=== PATIENT | female | born 1995 | race Caucasian/White ===

== ENCOUNTER 2018-07-29 16:58 | Emergency (ER) | payer OTHER ==
[~2018-07-29] VITALS: Ht 154.9 cm; Wt 103.2 kg
[~2018-07-29 16:58] MED LIST: ABILIFY 15MG TA15 MG PO; ATARAX50 MG PO; DEXILANT60 MG PO; LEXAPRO20 MG PO; LORTAB 7.5/5001 TAB; TENORMIN 2525 MG/TAB PO; ZOFRAN 4MG T4 MG/TAB PO; ZYPREXA 5MG5 MG PO; ZYRTEC 10MG10 MG PO
[2018-07-29 17:08] VITALS: TEMP 99.1
[2018-07-29] MEDS ORDERED: LOPRESSOR 550 MG/TAB PO (17:22)
[2018-07-29] MEDS ORDERED: DIAMOX 250MG250 MG PO (17:23)
[2018-07-29] MEDS ORDERED: LAMICTAL 100MG100 MG PO (17:23)
[2018-07-29] MEDS ORDERED: EFFEXOR-XR150 MG PO (17:23)
[2018-07-29] MEDS ORDERED: VITAMIN D31000 I1 PO (17:24)
[2018-07-29] MEDS ORDERED: DESYREL 100MG100 MG PO ×2 (17:24)
[2018-07-29] MEDS ORDERED: FOLIC ACID 11 MG/TA1 PO (17:24)
[2018-07-29] MEDS ORDERED: SEROQUEL300 MG PO (17:25)
[2018-07-29] MEDS ORDERED: KLONOPIN 1MG1 MG PO (17:25)
[2018-07-29 18:25] LABS: COLLECTION METHOD CLEAN CATCH
[2018-07-29 18:34] LABS: MUCOUS Present /lpf; PH 7 (5-8); URINE APPEARANCE Hazy; URINE BACTERIA Rare /hpf; URINE BILIRUBIN Negative (NEGATIVE); URINE BLOOD Negative (NEGATIVE); URINE COLOR Yellow; URINE GLUCOSE Negative (NEGATIVE); URINE KETONE Negative (NEGATIVE); URINE LEUKOCYTE ESTERASE 2+ (NEGATIVE); URINE NITRATE Negative (NEGATIVE); URINE PROTEIN(semi-quant) Negative (NEGATIVE); URINE RBC 0-2 /hpf
[2018-07-29 18:50] LABS: BASO % 0.2 % (0.0-2.0); EOS % 0.1 % (0-4.0); GRAN # 18.1 (1.4-6.5); MEAN CELL VOLUME 79 fl (80.0-100.0); MEAN CORPUSCULAR HEMOGLOBIN 24 pg (27.0-31.0); MEAN CORPUSCULAR HGB CONC 30 g/dl (33.0-37.0); MEAN PLATELET VOLUME 9.9 fl (7.4-10.4); MONO # 0.1 (0.1-0.6); MONO % 0.6 % (1.7-9.3); PLATELET COUNT 339 K/mm3 (130-400); RED BLOOD COUNT 5.07 M/mm3 (4.10-5.30); REDCELL DISTRIBUTION WIDTH-CV 18.1 % (11.5-14.5)
[2018-07-29 18:56] LABS: PROTHROMBIN TIME 11.3 SECONDS (9.7-12.8)
[2018-07-29 19:01] LABS: BILIRUBIN,TOTAL 0.2 mg/dL (0.0-1.0); C-REACTIVE PROTEIN 1.8 mg/dL (0.0-0.9); CALCIUM 9.3 mg/dL (8.4-10.2); CREATININE, serum 1.29 mg/dL (0.52-1.25); POTASSIUM 3.9 mmol/L (3.4-5.0); TOTAL PROTEIN 7.3 gm/dL (6.4-8.2)
[2018-07-29 21:09] VITALS: BP 127/88; PULSE 88
[2018-07-29] MEDS ORDERED: CIPRO 500MG TA500 MG PO (21:12)
[2018-07-29] MEDS ORDERED: PHENERGAN 25 TA25 MG PO (21:12)
[2018-07-29] MEDS ORDERED: NORCO 325 MG-51 TAB PO (21:12)
== END 2018-07-29 21:15 | disposition home or self-care (01) ==
LOC: COL.ER 16:58
PROVIDERS: Emergency Medicine
DX: K50.90 Crohn's disease, unspecified, without complications (principal); N39.0 Urinary tract infection, site not specified
CPT/HCPCS: J0780; J1170; J7030; Q9967

== ENCOUNTER 2018-09-13 20:15 | Emergency (ER) | payer OTHER ==
[~2018-09-13] VITALS: Ht 154.9 cm; Wt 105.0 kg
[~2018-09-13 20:15] MED LIST changes: +CIPRO 500MG TA500 MG PO; +DESYREL 100MG100 MG PO; +DIAMOX 250MG250 MG PO; +EFFEXOR-XR150 MG PO; +FOLIC ACID 11 MG/TA1 PO; +KLONOPIN 1MG1 MG PO; +LAMICTAL 100MG100 MG PO; +LOPRESSOR 550 MG/TAB PO; +NORCO 325 MG-51 TAB PO; +PHENERGAN 25 TA25 MG PO; +SEROQUEL300 MG PO; +VITAMIN D31000 I1 PO
[2018-09-13 21:31] LABS: BASO # 0.1 (0.0-0.2); BASO % 0.4 % (0.0-2.0); EOS # 0.1 (0.0-0.7); GRAN # 11.2 (1.4-6.5); GRAN % 76.5 % (42.2-75.2); HEMATOCRIT 41.2 % (37.0-47.0); HEMOGLOBIN 12.5 g/dl (12.5-16.0); LYMPH # 2.3 (1.2-3.4); LYMPH % 15.9 % (20.0-51.0); MEAN CELL VOLUME 78 fl (80.0-100.0); MEAN CORPUSCULAR HEMOGLOBIN 24 pg (27.0-31.0); MEAN CORPUSCULAR HGB CONC 30 g/dl (33.0-37.0); MEAN PLATELET VOLUME 9.8 fl (7.4-10.4); MONO # 0.8 (0.1-0.6); MONO % 5.7 % (1.7-9.3); PLATELET COUNT 378 K/mm3 (130-400); REDCELL DISTRIBUTION WIDTH-CV 16.2 % (11.5-14.5)
[2018-09-13 21:42] LABS: ALBUMIN 3.8 gm/dL (3.5-5.0); BILIRUBIN,TOTAL 0.3 mg/dL (0.0-1.0); C-REACTIVE PROTEIN 0.6 mg/dL (0.0-0.9); CALCIUM 9.1 mg/dL (8.4-10.2); CREATININE, serum 1.1 mg/dL (0.52-1.25); TOTAL PROTEIN 6.9 gm/dL (6.4-8.2)
[2018-09-13 22:03] LABS: ERYTHROCYTE SEDIMENTATION RATE 9 mm/hr (0-20)
[2018-09-13 22:47] LABS: COLLECTION METHOD CLEAN CATCH
[2018-09-13 22:56] LABS: PH 6 (5-8); URINE APPEARANCE Hazy; URINE BACTERIA None Seen /hpf; URINE BILIRUBIN Negative (NEGATIVE); URINE BLOOD Negative (NEGATIVE); URINE COLOR Yellow; URINE GLUCOSE Negative (NEGATIVE); URINE KETONE Negative (NEGATIVE); URINE LEUKOCYTE ESTERASE Trace (NEGATIVE); URINE NITRATE Negative (NEGATIVE); URINE PROTEIN(semi-quant) 1+ (NEGATIVE); URINE RBC 0-2 /hpf; URINE UROBILINOGEN Negative (NEGATIVE)
[2018-09-14] MEDS ORDERED: LIORESAL20 MG PO (00:07)
[2018-09-14] MEDS ORDERED: ULTRAM 50MG TAB50 MG PO (00:07)
[2018-09-14] MEDS ORDERED: CELEBREX 200MG200 MG PO (00:08)
[2018-09-14] MEDS ORDERED: EFFEXOR XR75 MG/CAP PO (00:08)
[2018-09-14 04:35] VITALS: TEMP 98.1
[2018-09-14 07:20] VITALS: BP 115/60; PULSE 70
== END 2018-09-14 07:31 | disposition short-term general hospital (02) ==
LOC: COL.ER 20:15
PROVIDERS: Emergency Medicine
DX: H53.132 Sudden visual loss, left eye (principal); K50.90 Crohn's disease, unspecified, without complications; Q14.1 Congenital malformation of retina
CPT/HCPCS: J1100; J2405; J3010; J7030

== ENCOUNTER 2018-09-28 15:51 | Emergency (ER) | payer MEDICAID ==
[~2018-09-28] VITALS: Ht 154.9 cm; Wt 108.6 kg
[~2018-09-28 15:51] MED LIST changes: +CELEBREX 200MG200 MG PO; +EFFEXOR XR75 MG/CAP PO; +LIORESAL20 MG PO; +ULTRAM 50MG TAB50 MG PO
[2018-09-28 16:03] VITALS: BP 138/94; TEMP 98.7
[2018-09-28] MEDS ORDERED: AMOXICILLIN 50500 MG PO (16:20)
[2018-09-28] MEDS ORDERED: NORCO 325 MG-51 TAB PO (16:20)
[2018-09-28] MEDS ORDERED: FLEXERIL5 MG PO (16:20)
[2018-09-28 16:33] VITALS: PULSE 111
== END 2018-09-28 16:34 | disposition home or self-care (01) ==
LOC: COL.ER 15:51
DX: M26.601 Right temporomandibular joint disorder, unspecified (principal); K50.90 Crohn's disease, unspecified, without complications

== ENCOUNTER 2018-10-09 16:31 | Emergency (ER) | payer MEDICAID ==
[~2018-10-09] VITALS: Ht 152.4 cm; Wt 103.6 kg
[~2018-10-09 16:31] MED LIST changes: +AMOXICILLIN 50500 MG PO; +FLEXERIL5 MG PO
[2018-10-09 16:35] VITALS: TEMP 99.5
[2018-10-09 20:13] LABS: COLLECTION METHOD CLEAN CATCH
[2018-10-09 20:26] LABS: MUCOUS Present /lpf; PH 5 (5-8); URINE APPEARANCE Clear; URINE BACTERIA None Seen /hpf; URINE BILIRUBIN Negative (NEGATIVE); URINE BLOOD Negative (NEGATIVE); URINE COLOR Yellow; URINE GLUCOSE Negative (NEGATIVE); URINE KETONE Negative (NEGATIVE); URINE LEUKOCYTE ESTERASE 1+ (NEGATIVE); URINE NITRATE Negative (NEGATIVE); URINE PROTEIN(semi-quant) 1+ (NEGATIVE); URINE RBC 0-2 /hpf; URINE UROBILINOGEN Negative (NEGATIVE)
[2018-10-09 21:04] LABS: BASO # 0.1 (0.0-0.2); BASO % 0.5 % (0.0-2.0); EOS # 0.3 (0.0-0.7); EOS % 2.5 % (0-4.0); GRAN # 6.9 (1.4-6.5); GRAN % 66.9 % (42.2-75.2); HEMATOCRIT 40.1 % (37.0-47.0); HEMOGLOBIN 12.1 g/dl (12.5-16.0); LYMPH # 2.5 (1.2-3.4); LYMPH % 24.2 % (20.0-51.0); MEAN CELL VOLUME 78 fl (80.0-100.0); MEAN CORPUSCULAR HEMOGLOBIN 23 pg (27.0-31.0); MEAN CORPUSCULAR HGB CONC 30 g/dl (33.0-37.0); MONO # 0.6 (0.1-0.6); MONO % 5.7 % (1.7-9.3); PLATELET COUNT 408 K/mm3 (130-400); RED BLOOD COUNT 5.17 M/mm3 (4.10-5.30); REDCELL DISTRIBUTION WIDTH-CV 15.6 % (11.5-14.5)
[2018-10-09 21:42] LABS: ALBUMIN 3.9 gm/dL (3.5-5.0); BILIRUBIN,TOTAL 0.3 mg/dL (0.0-1.0); C-REACTIVE PROTEIN 1.1 mg/dL (0.0-0.9); CALCIUM 9.8 mg/dL (8.4-10.2); CREATININE, serum 1.26 (0.52-1.25); POTASSIUM 3.8 mmol/L (3.4-5.0); TOTAL PROTEIN 7.3 gm/dL (6.4-8.2)
[2018-10-09 23:10] VITALS: BP 129/81; PULSE 96
== END 2018-10-09 23:10 | disposition home or self-care (01) ==
LOC: COL.ER 16:31
PROVIDERS: Emergency Medicine
DX: R19.7 Diarrhea, unspecified (principal); R11.10 Vomiting, unspecified; R10.11 Right upper quadrant pain; K21.9 Gastro-esophageal reflux disease without esophagitis; G40.909 Epilepsy, unspecified, not intractable, without status epilepticus; E27.40 Unspecified adrenocortical insufficiency; Z88.2 Allergy status to sulfonamides; Z88.1 Allergy status to other antibiotic agents; Z90.49 Acquired absence of other specified parts of digestive tract; Z98.84 Bariatric surgery status
CPT/HCPCS: J2270; J7030; Q9967

== ENCOUNTER → 2018-11-09 | Outpatient (CLI) | payer MEDICAID | LOC: COL.RAD 15:29 | PROVIDERS: Family Medicine | DX: R00.0 Tachycardia, unspecified (principal); R05 Cough ==

== ENCOUNTER 2018-11-20 11:01 | Emergency (ER) | payer MEDICAID ==
[~2018-11-20] VITALS: Ht 152.4 cm; Wt 105.0 kg
[2018-11-20 11:07] VITALS: TEMP 96.5
[2018-11-20] MEDS ORDERED: CORTEF5 MG PO (11:39)
[2018-11-20] MEDS ORDERED: PROTONIX 40MG T40 MG PO (11:41)
[2018-11-20] MEDS ORDERED: PROAIR HFA0.09 MG/AC IH (11:43)
[2018-11-20] MEDS ORDERED: SEROQUEL 1100 MG/TAB PO (11:44)
[2018-11-20 12:23] LABS: COLLECTION METHOD CLEAN CATCH
[2018-11-20 12:49] LABS: MUCOUS Present /lpf; PH 5 (5-8); URINE APPEARANCE Clear; URINE BACTERIA None Seen /hpf; URINE BILIRUBIN Negative (NEGATIVE); URINE BLOOD Negative (NEGATIVE); URINE COLOR Yellow; URINE GLUCOSE Negative (NEGATIVE); URINE KETONE Trace (NEGATIVE); URINE LEUKOCYTE ESTERASE 2+ (NEGATIVE); URINE NITRATE Negative (NEGATIVE); URINE PROTEIN(semi-quant) 1+ (NEGATIVE); URINE UROBILINOGEN Negative (NEGATIVE)
[2018-11-20 13:35] LABS: BASO % 0.4 % (0.0-2.0); EOS # 0.1 (0.0-0.7); EOS % 0.7 % (0-4.0); GRAN # 7.2 (1.4-6.5); HEMATOCRIT 43.2 % (37.0-47.0); HEMOGLOBIN 13.5 g/dl (12.5-16.0); LYMPH # 1.7 (1.2-3.4); LYMPH % 18.1 % (20.0-51.0); MEAN CELL VOLUME 76 fl (80.0-100.0); MEAN CORPUSCULAR HEMOGLOBIN 24 pg (27.0-31.0); MEAN CORPUSCULAR HGB CONC 31 g/dl (33.0-37.0); MEAN PLATELET VOLUME 11.1 fl (7.4-10.4); MONO # 0.4 (0.1-0.6); MONO % 4.5 % (1.7-9.3); PLATELET COUNT 313 K/mm3 (130-400); RED BLOOD COUNT 5.69 M/mm3 (4.10-5.30); REDCELL DISTRIBUTION WIDTH-CV 15.1 % (11.5-14.5)
[2018-11-20 13:52] LABS: ALBUMIN 4.2 gm/dL (3.5-5.0); BILIRUBIN,TOTAL 0.5 mg/dL (0.0-1.0); C-REACTIVE PROTEIN 0.8 mg/dL (0.0-0.9); CALCIUM 10.1 mg/dL (8.4-10.2); CREATININE, serum 1.07 (0.52-1.25); POTASSIUM 4.4 mmol/L (3.4-5.0); TOTAL PROTEIN 7.6 gm/dL (6.4-8.2)
[2018-11-20 13:57] VITALS: BP 180/92; PULSE 65
== END 2018-11-20 13:59 | disposition home or self-care (01) ==
LOC: COL.ER 11:01
PROVIDERS: Family Medicine
DX: G43.909 Migraine, unspecified, not intractable, without status migrainosus (principal); G93.2 Benign intracranial hypertension; K50.90 Crohn's disease, unspecified, without complications; G40.909 Epilepsy, unspecified, not intractable, without status epilepticus; E27.40 Unspecified adrenocortical insufficiency; Z90.49 Acquired absence of other specified parts of digestive tract; Z79.52 Long term (current) use of systemic steroids
CPT/HCPCS: J1170; J2550

== ENCOUNTER 2018-11-23 15:00 | Emergency (ER) | payer MEDICAID ==
[~2018-11-23] VITALS: Ht 154.9 cm; Wt 105.0 kg
[~2018-11-23 15:00] MED LIST changes: +CORTEF5 MG PO; +PROAIR HFA0.09 MG/AC IH; +PROTONIX 40MG T40 MG PO; +SEROQUEL 1100 MG/TAB PO
[2018-11-23 15:17] VITALS: BP 164/86; TEMP 98.6
[2018-11-23 18:13] VITALS: PULSE 101
== END 2018-11-23 18:13 | disposition home or self-care (01) ==
LOC: COL.ER 15:00
DX: S40.011A Contusion of right shoulder, initial encounter (principal); S70.01XA Contusion of right hip, initial encounter; S16.1XXA Strain of muscle, fascia and tendon at neck level, initial encounter; I10 Essential (primary) hypertension; J45.909 Unspecified asthma, uncomplicated; K21.9 Gastro-esophageal reflux disease without esophagitis; W18.2XXA Fall in (into) shower or empty bathtub, initial encounter; Y93.F1 Activity, caregiving, bathing; Y92.009 Unspecified place in unspecified non-institutional (private) residence as the place of occurrence of the external cause

== ENCOUNTER 2018-11-26 15:13 | Emergency (ER) | payer MEDICAID ==
[~2018-11-26] VITALS: Ht 152.4 cm; Wt 105.0 kg
[2018-11-26] MEDS ORDERED: TESSALON PERLE200 MG PO (17:20)
[2018-11-26] MEDS ORDERED: ZITHROMAX500 M2 PO (17:20)
[2018-11-26 18:11] VITALS: BP 115/75; PULSE 92; TEMP 98.9
== END 2018-11-26 18:12 | disposition home or self-care (01) ==
LOC: COL.ER 15:13
DX: J40 Bronchitis, not specified as acute or chronic (principal); I10 Essential (primary) hypertension; K50.90 Crohn's disease, unspecified, without complications; F17.210 Nicotine dependence, cigarettes, uncomplicated; Z90.49 Acquired absence of other specified parts of digestive tract
CPT/HCPCS: J7512

== ENCOUNTER → 2018-11-27 | Outpatient (CLI) | payer MEDICAID ==
[~2018-11-27] MED LIST changes: +TESSALON PERLE200 MG PO; +ZITHROMAX500 M2 PO
[2018-11-27 14:33] LABS: BASO # 0.1 (0.0-0.2); BASO % 0.4 % (0.0-2.0); EOS # 0.5 (0.0-0.7); EOS % 2.8 % (0-4.0); GRAN % 74.2 % (42.2-75.2); HEMOGLOBIN 12.4 g/dl (12.5-16.0); LYMPH # 2.6 (1.2-3.4); LYMPH % 15.8 % (20.0-51.0); MEAN CELL VOLUME 75 fl (80.0-100.0); MEAN CORPUSCULAR HEMOGLOBIN 23 pg (27.0-31.0); MEAN CORPUSCULAR HGB CONC 31 g/dl (33.0-37.0); MEAN PLATELET VOLUME 10.1 fl (7.4-10.4); MONO % 6.4 % (1.7-9.3); PLATELET COUNT 325 K/mm3 (130-400); RED BLOOD COUNT 5.34 M/mm3 (4.10-5.30); REDCELL DISTRIBUTION WIDTH-CV 15.1 % (11.5-14.5)
== END ==
LOC: COL.LAB 14:01
PROVIDERS: Psychiatry & Neurology Neurology
DX: Z01.812 Encounter for preprocedural laboratory examination (principal); H46.9 Unspecified optic neuritis

== ENCOUNTER → 2018-11-27 | Outpatient (CLI) | payer MEDICAID | LOC: COL.RAD 13:54 | DX: M43.8X6 Other specified deforming dorsopathies, lumbar region (principal); M43.16 Spondylolisthesis, lumbar region; H46.9 Unspecified optic neuritis ==

== ENCOUNTER 2018-12-03 13:39 | Emergency (ER) | payer MEDICAID ==
[~2018-12-03] VITALS: Ht 152.4 cm; Wt 102.7 kg
[2018-12-03 13:42] VITALS: TEMP 97.8
[2018-12-03 18:30] VITALS: BP 133/75; PULSE 73
== END 2018-12-03 18:31 | disposition home or self-care (01) ==
LOC: COL.ER 13:39
DX: R51 Headache (principal)
CPT/HCPCS: J1630; J2550; J3010

== ENCOUNTER 2018-12-04 15:18 | Emergency (ER) | payer MEDICAID ==
[~2018-12-04] VITALS: Ht 152.4 cm; Wt 104.1 kg
[2018-12-04 15:26] VITALS: TEMP 99.2
[2018-12-04 17:37] LABS: ALANINE AMINOTRANSFERASE < 6 U/L (9-52); ALBUMIN 4.1 gm/dL (3.5-5.0); ALKALINE PHOSPHATASE 94 U/L (50-136); ANION GAP 9 mmol/L (7-16); AST,SGOT 20 U/L (15-37); BILIRUBIN,TOTAL 0.3 mg/dL (0.0-1.0); BLOOD UREA NITROGEN 11 mg/dL (7-17); C-REACTIVE PROTEIN 1.4 mg/dL (0.0-0.9); CALCIUM 9.3 mg/dL (8.4-10.2); CARBON DIOXIDE 24 mmol/L (22-30); CHLORIDE 108 mmol/L (98-107); CREATININE, serum 1.21 (0.52-1.25); GLUCOSE 89 mg/dL (74-106); POTASSIUM 3.9 mmol/L (3.4-5.0); SODIUM 141 mmol/L (137-145); TOTAL PROTEIN 7.5 gm/dL (6.4-8.2)
[2018-12-04 17:44] LABS: BASO % 0.3 % (0.0-2.0); EOS # 0.3 (0.0-0.7); EOS % 2.4 % (0-4.0); GRAN # 8.9 (1.4-6.5); GRAN % 72.9 % (42.2-75.2); HEMATOCRIT 42.6 % (37.0-47.0); HEMOGLOBIN 13.2 g/dl (12.5-16.0); LYMPH # 2.3 (1.2-3.4); LYMPH % 18.4 % (20.0-51.0); MEAN CELL VOLUME 76 fl (80.0-100.0); MEAN CORPUSCULAR HEMOGLOBIN 23 pg (27.0-31.0); MEAN CORPUSCULAR HGB CONC 31 g/dl (33.0-37.0); MEAN PLATELET VOLUME 10.2 fl (7.4-10.4); MONO # 0.7 (0.1-0.6); MONO % 5.6 % (1.7-9.3); PLATELET COUNT 366 K/mm3 (130-400); RED BLOOD COUNT 5.63 M/mm3 (4.10-5.30); REDCELL DISTRIBUTION WIDTH-CV 15.3 % (11.5-14.5)
[2018-12-04 22:51] VITALS: BP 132/92; PULSE 98
== END 2018-12-04 19:15 | disposition short-term general hospital (02) ==
LOC: COL.ER
PROVIDERS: Emergency Medicine
DX: R51 Headache (principal); F17.210 Nicotine dependence, cigarettes, uncomplicated
CPT/HCPCS: J2405; J3010; J7030

== ENCOUNTER 2018-12-11 19:39 | Emergency (ER) | payer MEDICAID ==
[~2018-12-11] VITALS: Ht 152.4 cm; Wt 105.0 kg
[2018-12-11 19:41] VITALS: TEMP 97.9
[2018-12-11] MEDS ORDERED: NORVASC2.5 MG PO (20:23)
[2018-12-11] MEDS ORDERED: MAGNESIUM OXID500 MG PO (20:23)
[2018-12-12 06:30] VITALS: BP 144/85
[2018-12-12 08:00] VITALS: PULSE 98
== END 2018-12-12 08:00 | disposition short-term general hospital (02) ==
LOC: COL.ER 19:39
DX: G93.2 Benign intracranial hypertension (principal)
CPT/HCPCS: J1170; J1200; J1630; J2550; J2930; J7030

== ENCOUNTER 2019-01-02 17:13 | Emergency (ER) | payer MEDICAID ==
[~2019-01-02 17:13] MED LIST changes: +MAGNESIUM OXID500 MG PO; +NORVASC2.5 MG PO
[2019-01-02 17:16] VITALS: TEMP 98.7
[2019-01-02 18:32] LABS: BASO # 0.1 (0.0-0.2); BASO % 0.5 % (0.0-2.0); EOS # 0.3 (0.0-0.7); GRAN # 6.9 (1.4-6.5); GRAN % 62.9 % (42.2-75.2); HEMATOCRIT 41.7 % (37.0-47.0); HEMOGLOBIN 12.8 g/dl (12.5-16.0); LYMPH # 2.8 (1.2-3.4); LYMPH % 25.8 % (20.0-51.0); MEAN CELL VOLUME 75 fl (80.0-100.0); MEAN CORPUSCULAR HEMOGLOBIN 23 pg (27.0-31.0); MEAN CORPUSCULAR HGB CONC 31 g/dl (33.0-37.0); MEAN PLATELET VOLUME 10.2 fl (7.4-10.4); MONO # 0.8 (0.1-0.6); MONO % 7.6 % (1.7-9.3); PLATELET COUNT 387 K/mm3 (130-400); RED BLOOD COUNT 5.55 M/mm3 (4.10-5.30); REDCELL DISTRIBUTION WIDTH-CV 15.3 % (11.5-14.5)
[2019-01-02 18:39] LABS: ACETAMINOPHEN < 10 ug/mL (10-30); ALANINE AMINOTRANSFERASE 23 U/L (9-52); ALBUMIN 4.2 gm/dL (3.5-5.0); ALCOHOL(ethanol),MEDICAL < 10 mg/dL; ALKALINE PHOSPHATASE 108 U/L (50-136); ANION GAP 11 mmol/L (7-16); AST,SGOT 23 U/L (15-37); BILIRUBIN,TOTAL 0.3 mg/dL (0.0-1.0); BLOOD UREA NITROGEN 11 mg/dL (7-17); CALCIUM 10.1 mg/dL (8.4-10.2); CARBON DIOXIDE 24 mmol/L (22-30); CHLORIDE 109 mmol/L (98-107); CREATININE, serum 1.08 (0.52-1.25); GLUCOSE 106 mg/dL (74-106); POTASSIUM 3.9 mmol/L (3.4-5.0); SALICYLATE < 1.0 mg/dL; SODIUM 144 mmol/L (137-145); TOTAL PROTEIN 7.6 gm/dL (6.4-8.2)
[2019-01-02 19:05] LABS: TRICYCLIC ANTIDEPRESS URINE POSITIVE
[2019-01-02 20:37] LABS: ARTERIAL BLD GAS O2 SATURATION 99.1 % (92-100); ARTERIAL BLD GAS TCO2 CT 21.8; ARTERIAL BLOOD GAS BASE EXCESS -2.9 (-2-2); ARTERIAL BLOOD GAS HCO3 20.8 meq/L (22-26); ARTERIAL BLOOD GAS PCO2 32.9 mmHg (35-45); ARTERIAL BLOOD GAS pH 7.42 (7.35-7.45)
[2019-01-02 20:38] LABS: ARTERIAL BLOOD GAS PO2 387.1 mmHg (80-100)
[2019-01-02 21:30] VITALS: BP 126/59; PULSE 49
== END 2019-01-02 21:30 | disposition short-term general hospital (02) ==
LOC: COL.ER 17:13
PROVIDERS: Emergency Medicine
DX: T42.8X2A Poisoning by antiparkinsonism drugs and other central muscle-tone depressants, intentional self-harm, initial encounter (principal); R41.82 Altered mental status, unspecified; F31.9 Bipolar disorder, unspecified; K50.90 Crohn's disease, unspecified, without complications; Z98.890 Other specified postprocedural states; Z90.49 Acquired absence of other specified parts of digestive tract
CPT/HCPCS: J0330; J2250; J2405; J2543; J2704; J2765; J3010; J7030

== ENCOUNTER 2019-01-28 15:46 | Emergency (ER) | payer MEDICAID ==
[~2019-01-28] VITALS: Ht 152.4 cm; Wt 100.0 kg
[2019-01-28 15:53] VITALS: TEMP 97.4
[2019-01-28] MEDS ORDERED: SEROQUEL XR400 M1 PO (17:30)
[2019-01-28] MEDS ORDERED: KEPPRA1000 MG PO (17:30)
[2019-01-28] MEDS ORDERED: AMITRIPTYLINE H25 M1 PO (17:31)
[2019-01-28] MEDS ORDERED: DILANTIN 100MG100 MG PO (17:31)
[2019-01-28] MEDS ORDERED: KLONOPIN 0.5MG0.5 MG PO (17:32)
[2019-01-28 18:39] LABS: BASO % 0.3 % (0.0-2.0); EOS # 0.5 (0.0-0.7); EOS % 4.9 % (0-4.0); GRAN # 6.8 (1.4-6.5); GRAN % 69.7 % (42.2-75.2); HEMATOCRIT 38.9 % (37.0-47.0); HEMOGLOBIN 11.6 g/dl (12.5-16.0); LYMPH # 1.7 (1.2-3.4); LYMPH % 17.6 % (20.0-51.0); MEAN CELL VOLUME 78 fl (80.0-100.0); MEAN CORPUSCULAR HEMOGLOBIN 23 pg (27.0-31.0); MEAN CORPUSCULAR HGB CONC 30 g/dl (33.0-37.0); MEAN PLATELET VOLUME 9.9 fl (7.4-10.4); MONO # 0.7 (0.1-0.6); MONO % 7.2 % (1.7-9.3); PLATELET COUNT 305 K/mm3 (130-400); RED BLOOD COUNT 4.98 M/mm3 (4.10-5.30); REDCELL DISTRIBUTION WIDTH-CV 17.7 % (11.5-14.5)
[2019-01-28 18:44] LABS: COLLECTION METHOD CLEAN CATCH
[2019-01-28 18:50] LABS: ALANINE AMINOTRANSFERASE 30 U/L (9-52); ALBUMIN 3.8 gm/dL (3.5-5.0); ALKALINE PHOSPHATASE 114 U/L (50-136); ANION GAP 9 mmol/L (7-16); AST,SGOT 25 U/L (15-37); BILIRUBIN,TOTAL 0.2 mg/dL (0.0-1.0); BLOOD UREA NITROGEN 10 mg/dL (7-17); CALCIUM 9.3 mg/dL (8.4-10.2); CARBON DIOXIDE 26 mmol/L (22-30); CHLORIDE 108 mmol/L (98-107); GLUCOSE 87 mg/dL (74-106); MAGNESIUM 2.1 mg/dL (1.6-2.3); PHOSPHOROUS 3.9 mg/dL (2.5-4.5); POTASSIUM 4.1 mmol/L (3.4-5.0); SODIUM 143 mmol/L (137-145); TOTAL PROTEIN 6.9 gm/dL (6.4-8.2)
[2019-01-28 18:50] LABS: MUCOUS Present /lpf; PH 7 (5-8); URINE APPEARANCE Cloudy; URINE BACTERIA Rare /hpf; URINE BILIRUBIN Negative (NEGATIVE); URINE BLOOD 3+ (NEGATIVE); URINE COLOR Yellow; URINE GLUCOSE Negative (NEGATIVE); URINE KETONE Negative (NEGATIVE); URINE LEUKOCYTE ESTERASE 2+ (NEGATIVE); URINE NITRATE Positive (NEGATIVE); URINE PROTEIN(semi-quant) 2+ (NEGATIVE); URINE RBC >50 /hpf; URINE UROBILINOGEN Negative (NEGATIVE)
[2019-01-28 19:12] LABS: PHENYTOIN (DILANTIN) < 3.0 ug/mL (10.0-20.0)
[2019-01-28] MEDS ORDERED: CEFTIN500 MG PO (21:21)
[2019-01-28 21:31] VITALS: BP 132/95; PULSE 77
== END 2019-01-28 21:30 | disposition home or self-care (01) ==
LOC: COL.ER 15:46
PROVIDERS: Emergency Medicine
DX: N39.0 Urinary tract infection, site not specified (principal); F31.9 Bipolar disorder, unspecified; I10 Essential (primary) hypertension; F17.210 Nicotine dependence, cigarettes, uncomplicated; Z90.49 Acquired absence of other specified parts of digestive tract; Z98.890 Other specified postprocedural states
CPT/HCPCS: J0696; J1200; J1885; J2550; J7030

== ENCOUNTER 2019-02-23 12:36 | Emergency (ER) | payer MEDICAID ==
[~2019-02-23] VITALS: Ht 152.4 cm; Wt 100.5 kg
[~2019-02-23 12:36] MED LIST changes: +AMITRIPTYLINE H25 M1 PO; +CEFTIN500 MG PO; +DILANTIN 100MG100 MG PO; +KEPPRA1000 MG PO; +KLONOPIN 0.5MG0.5 MG PO; +SEROQUEL XR400 M1 PO
[2019-02-23 12:45] VITALS: TEMP 98.7
[2019-02-23 14:10] LABS: COLLECTION METHOD CLEAN CATCH
[2019-02-23 14:17] LABS: MUCOUS Present /lpf; PH 5 (5-8); URINE APPEARANCE Hazy; URINE BACTERIA Rare /hpf; URINE BILIRUBIN Negative (NEGATIVE); URINE BLOOD Negative (NEGATIVE); URINE COLOR Yellow; URINE GLUCOSE Negative (NEGATIVE); URINE KETONE Negative (NEGATIVE); URINE LEUKOCYTE ESTERASE 2+ (NEGATIVE); URINE NITRATE Positive (NEGATIVE); URINE PROTEIN(semi-quant) 2+ (NEGATIVE); URINE UROBILINOGEN Negative (NEGATIVE)
[2019-02-23 14:53] LABS: BASO # 0.1 (0.0-0.2); BASO % 0.7 % (0.0-2.0); EOS # 0.7 (0.0-0.7); EOS % 7.2 % (0-4.0); GRAN # 5.8 (1.4-6.5); GRAN % 64.3 % (42.2-75.2); HEMATOCRIT 42.1 % (37.0-47.0); HEMOGLOBIN 12.9 g/dl (12.5-16.0); LYMPH % 22.3 % (20.0-51.0); MEAN CELL VOLUME 75 fl (80.0-100.0); MEAN CORPUSCULAR HEMOGLOBIN 23 pg (27.0-31.0); MEAN CORPUSCULAR HGB CONC 31 g/dl (33.0-37.0); MEAN PLATELET VOLUME 10.3 fl (7.4-10.4); MONO # 0.5 (0.1-0.6); MONO % 5.3 % (1.7-9.3); PLATELET COUNT 304 K/mm3 (130-400); RED BLOOD COUNT 5.61 M/mm3 (4.10-5.30)
[2019-02-23 15:05] LABS: ALBUMIN 4.5 gm/dL (3.5-5.0); BILIRUBIN,TOTAL 0.3 mg/dL (0.0-1.0); C-REACTIVE PROTEIN 1.4 mg/dL (0.0-0.9); CALCIUM 9.6 mg/dL (8.4-10.2); CREATININE, serum 0.86 (0.52-1.25); POTASSIUM 4.2 mmol/L (3.4-5.0); TOTAL PROTEIN 7.9 gm/dL (6.4-8.2)
[2019-02-23 15:19] LABS: PROLACTIN 16.5 ng/mL (3.0-18.6)
[2019-02-23 15:22] VITALS: BP 127/89
[2019-02-23] MEDS ORDERED: LOPRESSOR 225 MG/TAB PO (15:28)
[2019-02-23] MEDS ORDERED: SEROQUEL XR300 MG PO (15:28)
[2019-02-23] MEDS ORDERED: CEPHALEXIN500 M1 PO (15:37)
[2019-02-23 15:45] VITALS: PULSE 90
== END 2019-02-23 15:48 | disposition home or self-care (01) ==
LOC: COL.ER 12:36
PROVIDERS: Physician Assistant
DX: N39.0 Urinary tract infection, site not specified (principal); R51 Headache; Z88.2 Allergy status to sulfonamides

== ENCOUNTER 2019-02-27 13:40 | Emergency (ER) | payer MEDICAID ==
[~2019-02-27] VITALS: Ht 152.4 cm; Wt 100.0 kg
[~2019-02-27 13:40] MED LIST changes: +CEPHALEXIN500 M1 PO; +LOPRESSOR 225 MG/TAB PO; +SEROQUEL XR300 MG PO
[2019-02-27 14:01] VITALS: BP 134/78; PULSE 112; TEMP 98.3
== END 2019-02-27 16:50 | disposition left against medical advice (07) ==
LOC: COL.ER 13:40
DX: N93.9 Abnormal uterine and vaginal bleeding, unspecified (principal)

== ENCOUNTER 2019-02-27 22:26 | Emergency (ER) | payer MEDICAID | END 2019-02-27 22:46 | disposition left against medical advice (07) | LOC: COL.ER 22:26 | DX: R51 Headache (principal); Z72.9 Problem related to lifestyle, unspecified ==

== ENCOUNTER 2019-03-03 18:06 | Emergency (ER) | payer MEDICAID ==
[~2019-03-03] VITALS: Ht 152.4 cm; Wt 99.5 kg
[2019-03-03 20:06] LABS: COLLECTION METHOD CLEAN CATCH
[2019-03-03 20:15] LABS: MUCOUS Present /lpf; PH 5 (5-8); URINE APPEARANCE Hazy; URINE BACTERIA Many /hpf; URINE BILIRUBIN Negative (NEGATIVE); URINE BLOOD Negative (NEGATIVE); URINE COLOR Yellow; URINE GLUCOSE Negative (NEGATIVE); URINE KETONE Negative (NEGATIVE); URINE LEUKOCYTE ESTERASE Trace (NEGATIVE); URINE NITRATE Positive (NEGATIVE); URINE PROTEIN(semi-quant) 2+ (NEGATIVE); URINE RBC 0-2 /hpf; URINE UROBILINOGEN Negative (NEGATIVE)
[2019-03-03 20:19] LABS: TRICYCLIC ANTIDEPRESS URINE POSITIVE
[2019-03-03 21:59] VITALS: BP 118/104; PULSE 107
[2019-03-03] MEDS ORDERED: MACROBID 1100 MG/CAP PO (22:17)
== END 2019-03-03 21:59 | disposition home or self-care (01) ==
LOC: COL.ER 18:06
PROVIDERS: Family Medicine
DX: T50.901A Poisoning by unspecified drugs, medicaments and biological substances, accidental (unintentional), initial encounter (principal); F41.9 Anxiety disorder, unspecified; F32.9 Major depressive disorder, single episode, unspecified; N39.0 Urinary tract infection, site not specified

== ENCOUNTER → 2019-03-25 | Outpatient (CLI) | payer MEDICAID ==
[~2019-03-25] MED LIST changes: +MACROBID 1100 MG/CAP PO
[2019-03-25 13:28] LABS: ALBUMIN 4.1 gm/dL (3.5-5.0); BILIRUBIN,TOTAL 0.2 mg/dL (0.0-1.0); CALCIUM 9.4 mg/dL (8.4-10.2); CREATININE, serum 1.02 (0.52-1.25); POTASSIUM 4.1 mmol/L (3.4-5.0); TOTAL PROTEIN 6.9 gm/dL (6.4-8.2)
[2019-03-25 13:59] LABS: THYROID STIMULATING HORMONE 2.88 uIU/mL (0.465-4.680)
[2019-03-26 00:18] LABS: HEPATITIS B SURFACE ANTIBODY <2.0 (()); HEPATITIS B SURFACE ANTIGEN Negative (Negative); HEPATITIS C VIRUS ANTIBODY Negative (Negative)
[2019-03-27 03:58] LABS: HEPATITIS AB (HAV) IGG INDEX 0.37 Index (<=1.00)
== END ==
LOC: COL.LAB 10:26
PROVIDERS: Internal Medicine Gastroenterology
DX: K50.00 Crohn's disease of small intestine without complications (principal)

== ENCOUNTER 2019-03-31 11:32 | Emergency (ER) | payer MEDICAID ==
[~2019-03-31] VITALS: Ht 152.4 cm; Wt 99.1 kg
[2019-03-31 11:39] VITALS: BP 130/75; PULSE 112; TEMP 96.9
[2019-03-31] MEDS ORDERED: AMOXICILLIN875 MG PO (15:02)
[2019-03-31] MEDS ORDERED: NORCO 325 MG-51 TAB PO (15:02)
--- NOTE | 2019-04-02 14:50 | NUR ---
WEAVING INSTRUCTOR student contacted patient to discuss CCT DANNY. The patient reports she will be at the hospital on , 04/08. The patient is agreeable to contacting WEAVING INSTRUCTOR student at that time to sign DANNY. AMARILIS student collaborated the above information with Case Manangement Director.
== END 2019-03-31 15:34 | disposition home or self-care (01) ==
LOC: COL.ER 11:32
DX: K02.9 Dental caries, unspecified (principal); K04.7 Periapical abscess without sinus; K50.90 Crohn's disease, unspecified, without complications; F17.210 Nicotine dependence, cigarettes, uncomplicated

== ENCOUNTER → 2019-04-08 | Outpatient (CLI) | payer MEDICAID ==
[~2019-04-08] MED LIST changes: +AMOXICILLIN875 MG PO
== END ==
LOC: COL.RAD 06:58
DX: R18.8 Other ascites (principal); K50.00 Crohn's disease of small intestine without complications; K92.1 Melena; R19.7 Diarrhea, unspecified

== ENCOUNTER 2019-04-09 08:43 | Emergency (ER) | payer MEDICAID ==
[~2019-04-09] VITALS: Ht 152.4 cm; Wt 102.7 kg
[2019-04-09 08:48] VITALS: BP 117/68; TEMP 97.1
[2019-04-09] MEDS ORDERED: AMOXICILLIN875 MG PO (09:05)
[2019-04-09] MEDS ORDERED: NORCO 325 MG-51 TAB PO (09:05)
[2019-04-09 09:20] VITALS: PULSE 109
== END 2019-04-09 09:20 | disposition home or self-care (01) ==
LOC: COL.ER 08:43
DX: S02.5XXA Fracture of tooth (traumatic), initial encounter for closed fracture (principal); F17.210 Nicotine dependence, cigarettes, uncomplicated; Z90.89 Acquired absence of other organs; X58.XXXA Exposure to other specified factors, initial encounter

== ENCOUNTER → 2019-04-15 | Outpatient (CLI) | payer MEDICAID ==
[2019-04-17 09:58] LABS: TB GOLD INTERPRETATION Negative (Negative)
== END ==
LOC: COL.LAB 10:01
PROVIDERS: Internal Medicine Gastroenterology
DX: K50.00 Crohn's disease of small intestine without complications (principal)

== ENCOUNTER 2019-05-06 15:04 | Emergency (ER) | payer MEDICAID ==
[~2019-05-06] VITALS: Ht 152.4 cm; Wt 99.1 kg
[2019-05-06 15:18] VITALS: BP 139/84; PULSE 105; TEMP 97
[2019-05-06] MEDS ORDERED: OMNICEF 300MG300 MG PO (21:38)
== END 2019-05-06 17:13 | disposition left against medical advice (07) ==
LOC: COL.ER 15:04
DX: R20.2 Paresthesia of skin (principal)

== ENCOUNTER 2019-05-06 19:43 | Emergency (ER) | payer MEDICAID ==
[~2019-05-06] VITALS: Ht 172.7 cm; Wt 99.1 kg
[2019-05-06 20:30] LABS: BASO # 0.1 (0.0-0.2); BASO % 0.4 % (0.0-2.0); EOS # 0.8 (0.0-0.7); EOS % 5.6 % (0-4.0); GRAN # 9.9 (1.4-6.5); GRAN % 68.1 % (42.2-75.2); HEMATOCRIT 41.2 % (37.0-47.0); HEMOGLOBIN 12.7 g/dl (12.5-16.0); LYMPH # 2.8 (1.2-3.4); LYMPH % 19.5 % (20.0-51.0); MEAN CELL VOLUME 73 fl (80.0-100.0); MEAN CORPUSCULAR HEMOGLOBIN 23 pg (27.0-31.0); MEAN CORPUSCULAR HGB CONC 31 g/dl (33.0-37.0); MEAN PLATELET VOLUME 10.5 fl (7.4-10.4); MONO # 0.9 (0.1-0.6); PLATELET COUNT 340 K/mm3 (130-400); RED BLOOD COUNT 5.61 M/mm3 (4.10-5.30)
[2019-05-06 20:41] LABS: ALBUMIN 4.3 gm/dL (3.5-5.0); BILIRUBIN,TOTAL 0.2 mg/dL (0.0-1.0); CREATININE, serum 0.89 (0.52-1.25); POTASSIUM 3.9 mmol/L (3.4-5.0); TOTAL PROTEIN 7.5 gm/dL (6.4-8.2)
[2019-05-06 20:55] LABS: PROLACTIN 16.8 ng/mL (3.0-18.6)
[2019-05-06 21:00] LABS: COLLECTION METHOD CLEAN CATCH
[2019-05-06 21:15] LABS: AMORPHOUS CRYSTAL Present /uL; MUCOUS Present /lpf; PH 9 (5-8); URINE APPEARANCE Cloudy; URINE BACTERIA None Seen /hpf; URINE BILIRUBIN Negative (NEGATIVE); URINE BLOOD Negative (NEGATIVE); URINE COLOR Yellow; URINE GLUCOSE Negative (NEGATIVE); URINE KETONE Negative (NEGATIVE); URINE LEUKOCYTE ESTERASE 1+ (NEGATIVE); URINE NITRATE Negative (NEGATIVE); URINE PROTEIN(semi-quant) 2+ (NEGATIVE); URINE UROBILINOGEN Negative (NEGATIVE)
[2019-05-06] MEDS ORDERED: OMNICEF 300MG300 MG PO (21:38)
[2019-05-06 21:58] VITALS: BP 158/94; PULSE 98; TEMP 98.4
== END 2019-05-06 21:59 | disposition home or self-care (01) ==
LOC: COL.ER 19:43
PROVIDERS: Family Medicine
DX: J40 Bronchitis, not specified as acute or chronic (principal); N39.0 Urinary tract infection, site not specified; R51 Headache; G40.909 Epilepsy, unspecified, not intractable, without status epilepticus
CPT/HCPCS: A4216; J0696; J1200; J1630; J2550; J7030

== ENCOUNTER → 2019-05-18 | Outpatient (CLI) | payer MEDICAID ==
[~2019-05-18] MED LIST changes: +OMNICEF 300MG300 MG PO
== END ==
LOC: MHCPAIN 10:29
DX: G89.29 Other chronic pain (principal); M47.817 Spondylosis without myelopathy or radiculopathy, lumbosacral region; M54.16 Radiculopathy, lumbar region; M53.3 Sacrococcygeal disorders, not elsewhere classified
CPT/HCPCS: G0463

== ENCOUNTER 2019-05-22 13:45 | Emergency (ER) | payer MEDICAID ==
[~2019-05-22] VITALS: Ht 152.4 cm; Wt 97.7 kg
[2019-05-22 13:54] VITALS: TEMP 98.6
[2019-05-22 16:53] VITALS: BP 132/61; PULSE 98
== END 2019-05-22 16:53 | disposition home or self-care (01) ==
LOC: COL.ER 13:45
DX: S06.0X0A Concussion without loss of consciousness, initial encounter (principal); G40.909 Epilepsy, unspecified, not intractable, without status epilepticus; W19.XXXA Unspecified fall, initial encounter; Y92.009 Unspecified place in unspecified non-institutional (private) residence as the place of occurrence of the external cause
CPT/HCPCS: J2405; J3010

== ENCOUNTER 2019-06-01 11:53 | Emergency (ER) | payer MEDICAID ==
[~2019-06-01] VITALS: Ht 152.4 cm; Wt 97.7 kg
[2019-06-01 11:57] VITALS: TEMP 98.2
[2019-06-01 13:18] LABS: BASO # 0.1 (0.0-0.2); BASO % 0.6 % (0.0-2.0); EOS # 0.8 (0.0-0.7); EOS % 7.4 % (0-4.0); GRAN # 7.4 (1.4-6.5); GRAN % 67.6 % (42.2-75.2); HEMATOCRIT 40.9 % (37.0-47.0); HEMOGLOBIN 12.7 g/dl (12.5-16.0); LYMPH # 2.1 (1.2-3.4); MEAN CELL VOLUME 75 fl (80.0-100.0); MEAN CORPUSCULAR HEMOGLOBIN 23 pg (27.0-31.0); MEAN CORPUSCULAR HGB CONC 31 g/dl (33.0-37.0); MEAN PLATELET VOLUME 9.7 fl (7.4-10.4); MONO # 0.6 (0.1-0.6); MONO % 5.1 % (1.7-9.3); PLATELET COUNT 293 K/mm3 (130-400); RED BLOOD COUNT 5.44 M/mm3 (4.10-5.30); REDCELL DISTRIBUTION WIDTH-CV 17.7 % (11.5-14.5)
[2019-06-01 13:26] LABS: ALBUMIN 4.1 gm/dL (3.5-5.0); BILIRUBIN,TOTAL 0.4 mg/dL (0.0-1.0); C-REACTIVE PROTEIN 1.5 mg/dL (0.0-0.9); CALCIUM 9.5 mg/dL (8.4-10.2); CREATININE, serum 0.95 (0.52-1.25); POTASSIUM 4.4 mmol/L (3.4-5.0); TOTAL PROTEIN 7.3 gm/dL (6.4-8.2)
[2019-06-01] MEDS ORDERED: ZOFRAN ODT4 MG PO (14:20)
[2019-06-01 14:37] VITALS: BP 132/81; PULSE 81
== END 2019-06-01 14:45 | disposition home or self-care (01) ==
LOC: COL.ER 11:53
PROVIDERS: Physician Assistant
DX: R10.31 Right lower quadrant pain (principal); G40.909 Epilepsy, unspecified, not intractable, without status epilepticus; F17.210 Nicotine dependence, cigarettes, uncomplicated; Z88.2 Allergy status to sulfonamides; Z90.89 Acquired absence of other organs; Z88.6 Allergy status to analgesic agent
CPT/HCPCS: C9113; J1885; J2405; J7030

== ENCOUNTER → 2019-06-04 | Outpatient (CLI) | payer MEDICAID ==
[~2019-06-04] MED LIST changes: +ZOFRAN ODT4 MG PO
[2019-06-04 10:05] LABS: BASO # 0.1 (0.0-0.2); BASO % 0.4 % (0.0-2.0); EOS % 8.3 % (0-4.0); GRAN # 8.1 (1.4-6.5); GRAN % 65.3 % (42.2-75.2); HEMATOCRIT 41.1 % (37.0-47.0); HEMOGLOBIN 12.9 g/dl (12.5-16.0); LYMPH # 2.4 (1.2-3.4); LYMPH % 19.4 % (20.0-51.0); MEAN CELL VOLUME 74 fl (80.0-100.0); MEAN CORPUSCULAR HEMOGLOBIN 23 pg (27.0-31.0); MEAN CORPUSCULAR HGB CONC 31 g/dl (33.0-37.0); MONO # 0.8 (0.1-0.6); MONO % 6.3 % (1.7-9.3); PLATELET COUNT 321 K/mm3 (130-400); RED BLOOD COUNT 5.54 M/mm3 (4.10-5.30)
[2019-06-04 10:19] LABS: ALBUMIN 4.1 gm/dL (3.5-5.0); C-REACTIVE PROTEIN 1.4 mg/dL (0.0-0.9); CALCIUM 9.5 mg/dL (8.4-10.2); CREATININE, serum 0.95 (0.52-1.25); POTASSIUM 3.8 mmol/L (3.4-5.0); TOTAL PROTEIN 7.1 gm/dL (6.4-8.2)
[2019-06-04 10:32] LABS: BILIRUBIN,TOTAL 0.2 mg/dL (0.0-1.0)
== END ==
LOC: COL.LAB 09:28
PROVIDERS: Internal Medicine Gastroenterology
DX: E27.1 Primary adrenocortical insufficiency (principal); K50.90 Crohn's disease, unspecified, without complications

== ENCOUNTER 2019-06-16 17:39 | Emergency (ER) | payer MEDICAID ==
[~2019-06-16] VITALS: Ht 152.4 cm; Wt 98.6 kg
[2019-06-16 17:40] VITALS: TEMP 99
[2019-06-16] MEDS ORDERED: CORTEF 10MG TAB10 MG PO (19:05)
[2019-06-16] MEDS ORDERED: PROAIR DIGIHAL90 MCG IH (19:06)
[2019-06-16] MEDS ORDERED: ZONEGRAN50 MG PO (19:07)
[2019-06-16] MEDS ORDERED: ATARAX 25MG25 MG/TAB PO (19:07)
[2019-06-16 19:33] LABS: COLLECTION METHOD CLEAN CATCH
[2019-06-16 19:44] LABS: MUCOUS Present /lpf; PH 5 (5-8); URINE APPEARANCE Hazy; URINE BACTERIA Many /hpf; URINE BILIRUBIN Negative (NEGATIVE); URINE BLOOD Negative (NEGATIVE); URINE COLOR Yellow; URINE GLUCOSE Negative (NEGATIVE); URINE KETONE Negative (NEGATIVE); URINE LEUKOCYTE ESTERASE Trace (NEGATIVE); URINE NITRATE Positive (NEGATIVE); URINE PROTEIN(semi-quant) 1+ (NEGATIVE); URINE RBC 0-2 /hpf; URINE UROBILINOGEN Negative (NEGATIVE)
[2019-06-16] MEDS ORDERED: PREDNISONE20 MG PO (20:11)
[2019-06-16] MEDS ORDERED: OMNICEF 300MG300 MG PO (20:11)
[2019-06-16 20:26] VITALS: BP 132/64; PULSE 104
== END 2019-06-16 20:34 | disposition home or self-care (01) ==
LOC: COL.ER 17:39
PROVIDERS: Emergency Medicine
DX: J45.909 Unspecified asthma, uncomplicated (principal); N39.0 Urinary tract infection, site not specified; G40.909 Epilepsy, unspecified, not intractable, without status epilepticus
CPT/HCPCS: J7512

== ENCOUNTER → 2019-06-30 | Outpatient (CLI) | payer MEDICAID ==
[~2019-06-30] MED LIST changes: +ATARAX 25MG25 MG/TAB PO; +CORTEF 10MG TAB10 MG PO; +PREDNISONE20 MG PO; +PROAIR DIGIHAL90 MCG IH; +ZONEGRAN50 MG PO
== END ==
LOC: COL.RAD 15:21
DX: R93.89 Abnormal findings on diagnostic imaging of other specified body structures (principal)

== ENCOUNTER 2019-07-04 17:32 | Emergency (ER) | payer MEDICAID ==
[~2019-07-04] VITALS: Ht 152.4 cm; Wt 96.4 kg
[2019-07-04 17:44] VITALS: TEMP 98.1
[2019-07-04 17:48] LABS: COLLECTION METHOD CLEAN CATCH
[2019-07-04 17:58] LABS: PH 7 (5-8); URINE APPEARANCE Hazy; URINE BACTERIA Rare /hpf; URINE BILIRUBIN Negative (NEGATIVE); URINE BLOOD Negative (NEGATIVE); URINE COLOR Yellow; URINE GLUCOSE Negative (NEGATIVE); URINE KETONE Negative (NEGATIVE); URINE LEUKOCYTE ESTERASE 2+ (NEGATIVE); URINE NITRATE Positive (NEGATIVE); URINE PROTEIN(semi-quant) 1+ (NEGATIVE); URINE RBC 0-2 /hpf; URINE UROBILINOGEN Negative (NEGATIVE)
[2019-07-04 18:47] LABS: BASO # 0.1 (0.0-0.2); BASO % 0.6 % (0.0-2.0); EOS # 0.8 (0.0-0.7); EOS % 7.9 % (0-4.0); GRAN # 6.7 (1.4-6.5); GRAN % 63.6 % (42.2-75.2); HEMATOCRIT 39.9 % (37.0-47.0); HEMOGLOBIN 12.5 g/dl (12.5-16.0); LYMPH # 2.2 (1.2-3.4); LYMPH % 20.7 % (20.0-51.0); MEAN CELL VOLUME 75 fl (80.0-100.0); MEAN CORPUSCULAR HEMOGLOBIN 24 pg (27.0-31.0); MEAN CORPUSCULAR HGB CONC 31 g/dl (33.0-37.0); MONO # 0.7 (0.1-0.6); MONO % 6.9 % (1.7-9.3); PLATELET COUNT 317 K/mm3 (130-400); RED BLOOD COUNT 5.32 M/mm3 (4.10-5.30); REDCELL DISTRIBUTION WIDTH-CV 17.2 % (11.5-14.5)
[2019-07-04 19:03] LABS: ALBUMIN 4.1 gm/dL (3.5-5.0); BILIRUBIN,TOTAL 0.2 mg/dL (0.0-1.0); C-REACTIVE PROTEIN 2.4 mg/dL (0.0-0.9); CALCIUM 9.1 mg/dL (8.4-10.2); CREATININE, serum 0.9 (0.52-1.25); TOTAL PROTEIN 7.2 gm/dL (6.4-8.2)
[2019-07-04 20:15] VITALS: BP 104/65; PULSE 90
[2019-07-04] MEDS ORDERED: CEPHALEXIN500 M1 PO (20:21)
== END 2019-07-04 20:44 | disposition home or self-care (01) ==
LOC: COL.ER 17:32
PROVIDERS: Emergency Medicine
DX: R10.31 Right lower quadrant pain (principal); K50.90 Crohn's disease, unspecified, without complications; Z90.89 Acquired absence of other organs; Z87.442 Personal history of urinary calculi
CPT/HCPCS: J1885; J7030

== ENCOUNTER 2019-07-11 13:55 | Emergency (ER) | payer MEDICAID ==
[~2019-07-11] VITALS: Ht 152.4 cm; Wt 96.8 kg
[2019-07-11 14:20] VITALS: BP 145/90; TEMP 98.1
[2019-07-11] MEDS ORDERED: ZITHROMAX 250M250 MG PO (15:39)
[2019-07-11] MEDS ORDERED: PREDNISONE20 MG PO (15:39)
[2019-07-11 15:43] VITALS: PULSE 109
== END 2019-07-11 15:45 | disposition home or self-care (01) ==
LOC: COL.ER 13:55
DX: J40 Bronchitis, not specified as acute or chronic (principal); J98.01 Acute bronchospasm; Z96.22 Myringotomy tube(s) status; F17.210 Nicotine dependence, cigarettes, uncomplicated
CPT/HCPCS: J7512

== ENCOUNTER 2019-07-15 18:02 | Emergency (ER) | payer MEDICAID ==
[~2019-07-15] VITALS: Ht 152.4 cm; Wt 96.8 kg
[~2019-07-15 18:02] MED LIST changes: +ZITHROMAX 250M250 MG PO
[2019-07-15 18:40] VITALS: TEMP 98.5
[2019-07-15 19:53] LABS: BASO # 0.1 (0.0-0.2); BASO % 0.5 % (0.0-2.0); EOS % 8.1 % (0-4.0); GRAN # 7.8 (1.4-6.5); HEMATOCRIT 39.9 % (37.0-47.0); HEMOGLOBIN 12.5 g/dl (12.5-16.0); LYMPH # 2.2 (1.2-3.4); LYMPH % 18.2 % (20.0-51.0); MEAN CELL VOLUME 75 fl (80.0-100.0); MEAN CORPUSCULAR HEMOGLOBIN 24 pg (27.0-31.0); MEAN CORPUSCULAR HGB CONC 31 g/dl (33.0-37.0); MEAN PLATELET VOLUME 9.7 fl (7.4-10.4); MONO # 0.9 (0.1-0.6); MONO % 7.9 % (1.7-9.3); PLATELET COUNT 331 K/mm3 (130-400); RED BLOOD COUNT 5.32 M/mm3 (4.10-5.30); REDCELL DISTRIBUTION WIDTH-CV 16.5 % (11.5-14.5)
[2019-07-15 20:03] LABS: ALBUMIN 3.9 gm/dL (3.5-5.0); BILIRUBIN,TOTAL 0.3 mg/dL (0.0-1.0); CALCIUM 9.2 mg/dL (8.4-10.2); CREATININE, serum 0.95 (0.52-1.25); POTASSIUM 4.5 mmol/L (3.4-5.0); TOTAL PROTEIN 6.9 gm/dL (6.4-8.2)
[2019-07-15] MEDS ORDERED: TESSALON P100 MG/CAP PO (21:42)
[2019-07-15 22:15] VITALS: BP 129/90; PULSE 89
== END 2019-07-15 22:15 | disposition home or self-care (01) ==
LOC: COL.ER 18:02
PROVIDERS: Emergency Medicine
DX: J20.9 Acute bronchitis, unspecified (principal); J45.909 Unspecified asthma, uncomplicated; J06.9 Acute upper respiratory infection, unspecified; F17.210 Nicotine dependence, cigarettes, uncomplicated
CPT/HCPCS: J1720; J2405; J7030

== ENCOUNTER 2019-07-25 17:05 | Emergency (ER) | payer MEDICAID ==
[~2019-07-25] VITALS: Ht 152.4 cm; Wt 95.9 kg
[~2019-07-25 17:05] MED LIST changes: +TESSALON P100 MG/CAP PO
[2019-07-25 17:07] VITALS: TEMP 99
[2019-07-25 18:21] LABS: BASO % 0.3 % (0.0-2.0); EOS # 0.4 (0.0-0.7); EOS % 3.6 % (0-4.0); GRAN # 5.9 (1.4-6.5); GRAN % 61.8 % (42.2-75.2); HEMATOCRIT 40.8 % (37.0-47.0); HEMOGLOBIN 12.7 g/dl (12.5-16.0); LYMPH # 2.3 (1.2-3.4); LYMPH % 24.1 % (20.0-51.0); MEAN CELL VOLUME 76 fl (80.0-100.0); MEAN CORPUSCULAR HEMOGLOBIN 24 pg (27.0-31.0); MEAN CORPUSCULAR HGB CONC 31 g/dl (33.0-37.0); MEAN PLATELET VOLUME 10.5 fl (7.4-10.4); MONO % 9.9 % (1.7-9.3); PLATELET COUNT 302 K/mm3 (130-400); RED BLOOD COUNT 5.35 M/mm3 (4.10-5.30)
[2019-07-25 18:34] LABS: ALBUMIN 4.1 gm/dL (3.5-5.0); BILIRUBIN,TOTAL 0.4 mg/dL (0.0-1.0); C-REACTIVE PROTEIN 0.9 mg/dL (0.0-0.9); CALCIUM 9.2 mg/dL (8.4-10.2); CREATININE, serum 0.79 (0.52-1.25); POTASSIUM 3.8 mmol/L (3.4-5.0); TOTAL PROTEIN 7.3 gm/dL (6.4-8.2)
[2019-07-25 19:03] LABS: COLLECTION METHOD CLEAN CATCH
[2019-07-25 19:10] LABS: MUCOUS Present /lpf; PH 5 (5-8); URINE APPEARANCE Hazy; URINE BACTERIA Many /hpf; URINE BILIRUBIN Negative (NEGATIVE); URINE BLOOD Negative (NEGATIVE); URINE COLOR Yellow; URINE GLUCOSE Negative (NEGATIVE); URINE KETONE Negative (NEGATIVE); URINE LEUKOCYTE ESTERASE 1+ (NEGATIVE); URINE NITRATE Positive (NEGATIVE); URINE PROTEIN(semi-quant) 2+ (NEGATIVE); URINE UROBILINOGEN Negative (NEGATIVE)
[2019-07-25] MEDS ORDERED: OMNICEF 300MG300 MG PO (19:34)
[2019-07-25 20:02] VITALS: BP 137/85; PULSE 86
== END 2019-07-25 19:59 | disposition home or self-care (01) ==
LOC: COL.ER 17:05
PROVIDERS: Physician Assistant
DX: N12 Tubulo-interstitial nephritis, not specified as acute or chronic (principal); F17.290 Nicotine dependence, other tobacco product, uncomplicated
CPT/HCPCS: A4216; J0696; J2405; J7030

== ENCOUNTER 2019-07-31 14:40 | Emergency (ER) | payer MEDICAID ==
[~2019-07-31] VITALS: Ht 152.4 cm; Wt 95.9 kg
[2019-07-31 15:06] LABS: BASO % 0.3 % (0.0-2.0); EOS # 0.5 (0.0-0.7); EOS % 4.7 % (0-4.0); GRAN # 7.3 (1.4-6.5); GRAN % 68.8 % (42.2-75.2); HEMATOCRIT 42.4 % (37.0-47.0); HEMOGLOBIN 13.2 g/dl (12.5-16.0); LYMPH # 2.2 (1.2-3.4); LYMPH % 20.5 % (20.0-51.0); MEAN CELL VOLUME 76 fl (80.0-100.0); MEAN CORPUSCULAR HEMOGLOBIN 24 pg (27.0-31.0); MEAN CORPUSCULAR HGB CONC 31 g/dl (33.0-37.0); MEAN PLATELET VOLUME 10.1 fl (7.4-10.4); MONO # 0.6 (0.1-0.6); MONO % 5.5 % (1.7-9.3); PLATELET COUNT 317 K/mm3 (130-400); RED BLOOD COUNT 5.59 M/mm3 (4.10-5.30); REDCELL DISTRIBUTION WIDTH-CV 16.6 % (11.5-14.5)
[2019-07-31 15:22] LABS: ALANINE AMINOTRANSFERASE 19 U/L (9-52); ALBUMIN 4.5 gm/dL (3.5-5.0); ALKALINE PHOSPHATASE 121 U/L (50-136); ANION GAP 11 mmol/L (7-16); AST,SGOT 22 U/L (15-37); BILIRUBIN,TOTAL 0.3 mg/dL (0.0-1.0); BLOOD UREA NITROGEN 15 mg/dL (7-17); CALCIUM 9.9 mg/dL (8.4-10.2); CARBON DIOXIDE 23 mmol/L (22-30); CHLORIDE 108 mmol/L (98-107); GLUCOSE 91 mg/dL (74-106); POTASSIUM 4.1 mmol/L (3.4-5.0); SODIUM 142 mmol/L (137-145); TOTAL PROTEIN 7.9 gm/dL (6.4-8.2)
[2019-07-31 15:24] LABS: ACETAMINOPHEN < 10 ug/mL (10-30)
[2019-07-31 15:25] LABS: ALCOHOL(ethanol),MEDICAL < 10 mg/dL; SALICYLATE < 1.0 mg/dL
[2019-07-31 15:56] LABS: COLLECTION METHOD CLEAN CATCH
[2019-07-31 16:02] LABS: MUCOUS Present /lpf; PH 5 (5-8); URINE APPEARANCE Hazy; URINE BACTERIA Rare /hpf; URINE BILIRUBIN Negative (NEGATIVE); URINE BLOOD Negative (NEGATIVE); URINE COLOR Yellow; URINE GLUCOSE Negative (NEGATIVE); URINE KETONE Negative (NEGATIVE); URINE LEUKOCYTE ESTERASE 2+ (NEGATIVE); URINE NITRATE Negative (NEGATIVE); URINE PROTEIN(semi-quant) 2+ (NEGATIVE); URINE UROBILINOGEN Negative (NEGATIVE)
[2019-07-31 16:17] LABS: TRICYCLIC ANTIDEPRESS URINE POSITIVE
[2019-07-31 16:32] LABS: PHENYTOIN (DILANTIN) < 3.0 ug/mL (10.0-20.0)
[2019-07-31 23:00] VITALS: BP 97/87; PULSE 101; TEMP 98.8
== END 2019-07-31 23:14 | disposition home or self-care (01) ==
LOC: COL.ER 14:40
PROVIDERS: Emergency Medicine
DX: T43.012A Poisoning by tricyclic antidepressants, intentional self-harm, initial encounter (principal); Z98.2 Presence of cerebrospinal fluid drainage device; Z93.3 Colostomy status
CPT/HCPCS: J7030; J7512

== ENCOUNTER 2019-08-07 19:50 | Emergency (ER) | payer MEDICAID ==
[~2019-08-07] VITALS: Ht 152.4 cm; Wt 95.9 kg
[2019-08-07 19:53] VITALS: BP 117/88; TEMP 97.4
[2019-08-07] MEDS ORDERED: FLEXERIL 1010 MG/TAB PO (20:18)
[2019-08-07 20:50] VITALS: PULSE 92
== END 2019-08-07 20:50 | disposition home or self-care (01) ==
LOC: COL.ER 19:50
DX: M54.10 Radiculopathy, site unspecified (principal); M54.5 Low back pain; G43.909 Migraine, unspecified, not intractable, without status migrainosus; F17.210 Nicotine dependence, cigarettes, uncomplicated

== ENCOUNTER 2019-08-23 13:36 | Emergency (ER) | payer MEDICAID ==
[~2019-08-23] VITALS: Ht 152.4 cm; Wt 95.9 kg
[~2019-08-23 13:36] MED LIST changes: +FLEXERIL 1010 MG/TAB PO
[2019-08-23 13:59] VITALS: BP 125/82; TEMP 97.8
[2019-08-23] MEDS ORDERED: AMOXICILLIN 8751 TAB PO (16:23)
[2019-08-23 16:53] VITALS: PULSE 96
== END 2019-08-23 16:54 | disposition home or self-care (01) ==
LOC: COL.ER 13:36
DX: K04.7 Periapical abscess without sinus (principal)

== ENCOUNTER → 2019-10-15 | Outpatient (CLI) | payer MEDICAID ==
[~2019-10-15] MED LIST changes: +AMOXICILLIN 8751 TAB PO; +MOBIC 7.5MG7.5 MG PO; +PRILOTC PO
== END ==
LOC: COL.RAD 10-12 10:00
DX: M54.2 Cervicalgia (principal); Z98.2 Presence of cerebrospinal fluid drainage device

== ENCOUNTER 2019-11-01 14:35 | Emergency (ER) | payer MEDICAID ==
[~2019-11-01] VITALS: Ht 152.4 cm; Wt 102.3 kg
[2019-11-01 14:43] VITALS: BP 138/86; TEMP 97.9
[2019-11-01] MEDS ORDERED: NAPROSYN500 MG PO (15:52)
[2019-11-01 16:03] VITALS: PULSE 89
== END 2019-11-01 16:04 | disposition home or self-care (01) ==
LOC: COL.ER 14:35
DX: M26.621 Arthralgia of right temporomandibular joint (principal); J45.909 Unspecified asthma, uncomplicated; F17.210 Nicotine dependence, cigarettes, uncomplicated
CPT/HCPCS: J1885

== ENCOUNTER 2019-11-06 15:19 | Emergency (ER) | payer MEDICAID ==
[~2019-11-06] VITALS: Ht 152.4 cm; Wt 102.3 kg
[~2019-11-06 15:19] MED LIST changes: +NAPROSYN500 MG PO
[2019-11-06 15:25] VITALS: PULSE 109; TEMP 98.1
[2019-11-06] MEDS ORDERED: CLEOCIN HCL300 MG PO (17:00)
[2019-11-06 17:21] VITALS: BP 127/78
== END 2019-11-06 17:25 | disposition home or self-care (01) ==
LOC: COL.ER 15:19
DX: R51 Headache (principal)

== ENCOUNTER 2019-12-15 21:12 | Emergency (ER) | payer MEDICAID ==
[~2019-12-15] VITALS: Ht 152.4 cm; Wt 102.3 kg
[~2019-12-15 21:12] MED LIST changes: +CLEOCIN HCL300 MG PO
[2019-12-15 22:22] LABS: COLLECTION METHOD CATHETER
[2019-12-15 22:30] LABS: MUCOUS Present /lpf; PH 6 (5-8); URINE APPEARANCE Cloudy; URINE BACTERIA Rare /hpf; URINE BILIRUBIN Negative (NEGATIVE); URINE BLOOD Negative (NEGATIVE); URINE COLOR Yellow; URINE GLUCOSE Negative (NEGATIVE); URINE KETONE Negative (NEGATIVE); URINE LEUKOCYTE ESTERASE 3+ (NEGATIVE); URINE NITRATE Negative (NEGATIVE); URINE PROTEIN(semi-quant) 1+ (NEGATIVE); URINE UROBILINOGEN Negative (NEGATIVE)
[2019-12-15] MEDS ORDERED: OMNICEF 300MG300 MG PO (22:51)
[2019-12-15 23:36] VITALS: BP 132/74; PULSE 80; TEMP 97.3
== END 2019-12-15 23:36 | disposition home or self-care (01) ==
LOC: COL.ER 21:12
PROVIDERS: Nurse Practitioner Primary Care
DX: N39.0 Urinary tract infection, site not specified (principal); F17.210 Nicotine dependence, cigarettes, uncomplicated; Z90.49 Acquired absence of other specified parts of digestive tract; Z96.22 Myringotomy tube(s) status
CPT/HCPCS: J0696; J1885; J2405

== ENCOUNTER 2019-12-23 13:47 | Emergency (ER) | payer MEDICAID ==
[~2019-12-23] VITALS: Ht 152.4 cm; Wt 102.3 kg
[2019-12-23 14:09] VITALS: BP 116/59; PULSE 86; TEMP 98.3
== END 2019-12-23 14:57 | disposition left against medical advice (07) ==
LOC: COL.ER 13:47
DX: J02.9 Acute pharyngitis, unspecified (principal); R22.1 Localized swelling, mass and lump, neck

== ENCOUNTER 2020-01-01 15:05 | Emergency (ER) | payer MEDICAID ==
[~2020-01-01] VITALS: Ht 152.4 cm; Wt 100.0 kg
[2020-01-01 15:06] VITALS: TEMP 98.5
[2020-01-01] MEDS ORDERED: VALIUM 5MG T5 MG/TAB PO (15:24)
[2020-01-01] MEDS ORDERED: NORCO 325 MG-51 TAB PO (15:24)
[2020-01-01 16:40] VITALS: BP 112/61; PULSE 108
== END 2020-01-01 16:37 | disposition home or self-care (01) ==
LOC: COL.ER 15:05
DX: M54.2 Cervicalgia (principal); M62.838 Other muscle spasm; G40.909 Epilepsy, unspecified, not intractable, without status epilepticus; E27.40 Unspecified adrenocortical insufficiency; Z98.2 Presence of cerebrospinal fluid drainage device; Z98.84 Bariatric surgery status; Z88.2 Allergy status to sulfonamides; Z88.1 Allergy status to other antibiotic agents

== ENCOUNTER 2020-01-20 20:18 | Emergency (ER) | payer MEDICAID ==
[~2020-01-20] VITALS: Ht 152.4 cm; Wt 102.7 kg
[2020-01-20 20:18] VITALS: BP 149/89; TEMP 98.7
[~2020-01-20 20:18] MED LIST changes: +VALIUM 5MG T5 MG/TAB PO
[2020-01-20 20:44] LABS: COLLECTION METHOD CLEAN CATCH
[2020-01-20 20:54] LABS: MUCOUS Present /lpf; PH 5 (5-8); SQUAMOUS EPITHELIAL 20-50 /hpf; URINE APPEARANCE Cloudy; URINE BACTERIA Moderate /hpf; URINE BILIRUBIN Negative (NEGATIVE); URINE BLOOD Negative (NEGATIVE); URINE COLOR Yellow; URINE GLUCOSE Negative (NEGATIVE); URINE KETONE Negative (NEGATIVE); URINE LEUKOCYTE ESTERASE 3+ (NEGATIVE); URINE NITRATE Positive (NEGATIVE); URINE PROTEIN(semi-quant) 2+ (NEGATIVE); URINE UROBILINOGEN Negative (NEGATIVE)
[2020-01-20 21:15] LABS: COLLECTION METHOD CATHETER
[2020-01-20 21:27] LABS: PH 5 (5-8); SQUAMOUS EPITHELIAL 0-2 /hpf; URINE APPEARANCE Hazy; URINE BACTERIA Occasional /hpf; URINE BILIRUBIN Negative (NEGATIVE); URINE BLOOD Negative (NEGATIVE); URINE COLOR Yellow; URINE GLUCOSE Negative (NEGATIVE); URINE KETONE Negative (NEGATIVE); URINE LEUKOCYTE ESTERASE Negative (NEGATIVE); URINE NITRATE Positive (NEGATIVE); URINE PROTEIN(semi-quant) 1+ (NEGATIVE); URINE RBC 0-2 /hpf; URINE UROBILINOGEN Negative (NEGATIVE)
[2020-01-20] MEDS ORDERED: OMNICEF 300MG300 MG PO (21:35)
[2020-01-20 22:17] VITALS: PULSE 104
== END 2020-01-20 22:17 | disposition home or self-care (01) ==
LOC: COL.ER 20:18
PROVIDERS: Emergency Medicine
DX: M54.5 Low back pain (principal); N39.0 Urinary tract infection, site not specified; G40.909 Epilepsy, unspecified, not intractable, without status epilepticus; Z98.2 Presence of cerebrospinal fluid drainage device; F17.200 Nicotine dependence, unspecified, uncomplicated
CPT/HCPCS: J3010

== ENCOUNTER 2020-01-27 19:54 | Emergency (ER) | payer MEDICAID ==
[~2020-01-27] VITALS: Ht 152.4 cm; Wt 104.5 kg
[2020-01-27 20:17] VITALS: BP 119/66; TEMP 98.6
[2020-01-27 20:46] LABS: COLLECTION METHOD CATHETER
[2020-01-27 20:49] LABS: BASO # 0.1 (0.0-0.2); BASO % 0.6 % (0.0-2.0); EOS # 0.8 (0.0-0.7); EOS % 6.4 % (0-4.0); GRAN # 7.5 (1.4-6.5); GRAN % 58.9 % (42.2-75.2); HEMATOCRIT 40.9 % (37.0-47.0); HEMOGLOBIN 12.8 g/dl (12.5-16.0); LYMPH # 3.4 (1.2-3.4); LYMPH % 26.9 % (20.0-51.0); MEAN CELL VOLUME 76 fl (80.0-100.0); MEAN CORPUSCULAR HEMOGLOBIN 24 pg (27.0-31.0); MEAN CORPUSCULAR HGB CONC 31 g/dl (33.0-37.0); MEAN PLATELET VOLUME 9.9 fl (7.4-10.4); MONO # 0.9 (0.1-0.6); PLATELET COUNT 308 K/mm3 (130-400); RED BLOOD COUNT 5.42 M/mm3 (4.10-5.30); REDCELL DISTRIBUTION WIDTH-CV 15.4 % (11.5-14.5)
[2020-01-27 20:51] LABS: MUCOUS Present /lpf; PH 5 (5-8); URINE APPEARANCE Clear; URINE BACTERIA Rare /hpf; URINE BILIRUBIN Negative (NEGATIVE); URINE BLOOD 3+ (NEGATIVE); URINE COLOR Yellow; URINE GLUCOSE Negative (NEGATIVE); URINE KETONE Negative (NEGATIVE); URINE LEUKOCYTE ESTERASE Trace (NEGATIVE); URINE NITRATE Positive (NEGATIVE); URINE PROTEIN(semi-quant) 1+ (NEGATIVE); URINE RBC 20-50 /hpf; URINE UROBILINOGEN Negative (NEGATIVE)
[2020-01-27 21:01] LABS: ALBUMIN 4.3 gm/dL (3.5-5.0); BILIRUBIN,TOTAL 0.3 mg/dL (0.0-1.0); C-REACTIVE PROTEIN 1.3 mg/dL (0.0-0.9); CALCIUM 9.7 mg/dL (8.4-10.2); CREATININE, serum 1.09 (0.52-1.25); POTASSIUM 4.3 mmol/L (3.4-5.0); TOTAL PROTEIN 7.8 gm/dL (6.4-8.2)
[2020-01-27] MEDS ORDERED: MACROBID 1100 MG/CAP PO (22:14)
[2020-01-27 22:39] VITALS: PULSE 94
[2020-01-28] MEDS ORDERED: NORCO 325 MG-51 TAB PO ×3 (18:18→18:31)
[2020-01-28] MEDS ORDERED: ROBAXIN100 MG/ML PO (18:18)
[2020-01-28] MEDS ORDERED: VICODIN 5/300 PO (18:21)
== END 2020-01-27 22:39 | disposition home or self-care (01) ==
LOC: COL.ER 19:54
PROVIDERS: Nurse Practitioner Primary Care
DX: N39.0 Urinary tract infection, site not specified (principal); F17.210 Nicotine dependence, cigarettes, uncomplicated; Z90.49 Acquired absence of other specified parts of digestive tract; Z96.22 Myringotomy tube(s) status
CPT/HCPCS: J0696; J1885; J7030

== ENCOUNTER 2020-01-28 16:37 | Emergency (ER) | payer MEDICAID ==
[~2020-01-28] VITALS: Ht 152.4 cm; Wt 104.5 kg
[2020-01-28 17:28] LABS: BASO # 0.1 (0.0-0.2); BASO % 0.6 % (0.0-2.0); EOS % 7.9 % (0-4.0); GRAN # 7.9 (1.4-6.5); GRAN % 63.2 % (42.2-75.2); HEMATOCRIT 38.8 % (37.0-47.0); HEMOGLOBIN 12.3 g/dl (12.5-16.0); LYMPH # 2.6 (1.2-3.4); LYMPH % 21.1 % (20.0-51.0); MEAN CELL VOLUME 75 fl (80.0-100.0); MEAN CORPUSCULAR HEMOGLOBIN 24 pg (27.0-31.0); MEAN CORPUSCULAR HGB CONC 32 g/dl (33.0-37.0); MONO # 0.9 (0.1-0.6); MONO % 6.9 % (1.7-9.3); PLATELET COUNT 345 K/mm3 (130-400); RED BLOOD COUNT 5.16 M/mm3 (4.10-5.30); REDCELL DISTRIBUTION WIDTH-CV 15.3 % (11.5-14.5)
[2020-01-28 17:38] LABS: ALBUMIN 3.9 gm/dL (3.5-5.0); BILIRUBIN,TOTAL 0.4 mg/dL (0.0-1.0); C-REACTIVE PROTEIN 1.1 mg/dL (0.0-0.9); CALCIUM 9.2 mg/dL (8.4-10.2); POTASSIUM 4.6 mmol/L (3.4-5.0); TOTAL PROTEIN 7.1 gm/dL (6.4-8.2)
[2020-01-28] MEDS ORDERED: NORCO 325 MG-51 TAB PO ×3 (18:18→18:31)
[2020-01-28] MEDS ORDERED: ROBAXIN100 MG/ML PO (18:18)
[2020-01-28] MEDS ORDERED: VICODIN 5/300 PO (18:21)
[2020-01-28 20:45] VITALS: BP 136/72; PULSE 85; TEMP 98.7
== END 2020-01-28 20:45 | disposition home or self-care (01) ==
LOC: COL.ER 16:37
PROVIDERS: Family Medicine
DX: N39.0 Urinary tract infection, site not specified (principal); M43.6 Torticollis; G40.909 Epilepsy, unspecified, not intractable, without status epilepticus
CPT/HCPCS: J0696; J1170; J2360; J2405; J7120

== ENCOUNTER → 2020-02-16 | Emergency (ER) | payer MEDICAID ==
[~2020-02-16] MED LIST changes: +ROBAXIN100 MG/ML PO; +VICODIN 5/300 PO
== END ==
LOC: COL.ER 16:15
DX: Z72.9 Problem related to lifestyle, unspecified (principal)

== ENCOUNTER → 2020-02-17 | Outpatient (CLI) | payer MEDICAID ==
[2020-02-17 11:01] LABS: BASO # 0.1 (0.0-0.2); BASO % 0.6 % (0.0-2.0); GRAN # 7.5 (1.4-6.5); GRAN % 61.6 % (42.2-75.2); HEMATOCRIT 41.2 % (37.0-47.0); HEMOGLOBIN 13.1 g/dl (12.5-16.0); LYMPH # 2.8 (1.2-3.4); LYMPH % 22.6 % (20.0-51.0); MEAN CELL VOLUME 75 fl (80.0-100.0); MEAN CORPUSCULAR HEMOGLOBIN 24 pg (27.0-31.0); MEAN CORPUSCULAR HGB CONC 32 g/dl (33.0-37.0); MEAN PLATELET VOLUME 10.4 fl (7.4-10.4); MONO # 0.8 (0.1-0.6); MONO % 6.8 % (1.7-9.3); PLATELET COUNT 250 K/mm3 (130-400); RED BLOOD COUNT 5.51 M/mm3 (4.10-5.30)
[2020-02-17 11:07] LABS: ALBUMIN 4.2 gm/dL (3.5-5.0); BILIRUBIN,TOTAL 0.4 mg/dL (0.0-1.0); C-REACTIVE PROTEIN 1.6 mg/dL (0.0-0.9); CREATININE, serum 1.3 (0.52-1.25); POTASSIUM 3.9 mmol/L (3.4-5.0); TOTAL PROTEIN 7.6 gm/dL (6.4-8.2)
== END ==
LOC: COL.LAB
PROVIDERS: Internal Medicine Gastroenterology
DX: R11.0 Nausea (principal); R10.9 Unspecified abdominal pain; Z20.828 Contact with and (suspected) exposure to other viral communicable diseases

== ENCOUNTER 2020-02-21 17:30 | Emergency (ER) | payer MEDICAID ==
[~2020-02-21] VITALS: Ht 152.4 cm; Wt 104.5 kg
[2020-02-21 17:31] VITALS: TEMP 98.3
[2020-02-21 19:33] LABS: COLLECTION METHOD CLEAN CATCH
[2020-02-21 19:40] LABS: MUCOUS Present /lpf; PH 5 (5-8); SQUAMOUS EPITHELIAL 0-2 /hpf; URINE APPEARANCE Clear; URINE BACTERIA None Seen /hpf; URINE BILIRUBIN Negative (NEGATIVE); URINE BLOOD 3+ (NEGATIVE); URINE COLOR Yellow; URINE GLUCOSE Negative (NEGATIVE); URINE KETONE Negative (NEGATIVE); URINE LEUKOCYTE ESTERASE Trace (NEGATIVE); URINE NITRATE Negative (NEGATIVE); URINE PROTEIN(semi-quant) 1+ (NEGATIVE); URINE UROBILINOGEN Negative (NEGATIVE)
[2020-02-21 19:54] VITALS: BP 132/68; PULSE 87
== END 2020-02-21 20:00 | disposition home or self-care (01) ==
LOC: COL.ER 17:30
PROVIDERS: Emergency Medicine
DX: M54.5 Low back pain (principal); M54.16 Radiculopathy, lumbar region; Z98.2 Presence of cerebrospinal fluid drainage device
CPT/HCPCS: J1790; J1885

== ENCOUNTER → 2020-02-24 | Outpatient (CLI) | payer MEDICAID | LOC: ZCOL.LAB 15:51 | DX: E27.1 Primary adrenocortical insufficiency (principal) ==

== ENCOUNTER → 2020-02-26 | Outpatient (CLI) | payer MEDICAID | LOC: COL.LAB 10:12 → ZCOL.LAB 10:12 | DX: E27.1 Primary adrenocortical insufficiency (principal) ==

== ENCOUNTER 2020-03-09 17:45 | Emergency (ER) | payer MEDICAID ==
[~2020-03-09] VITALS: Ht 152.4 cm; Wt 104.5 kg
[2020-03-09 17:48] VITALS: TEMP 98.3
[2020-03-09] MEDS ORDERED: AMOXICILLIN 8751 TAB PO (18:05)
[2020-03-09 18:13] VITALS: BP 134/108; PULSE 80
== END 2020-03-09 18:13 | disposition home or self-care (01) ==
LOC: COL.ER 17:45
DX: K04.7 Periapical abscess without sinus (principal); R56.9 Unspecified convulsions; J45.909 Unspecified asthma, uncomplicated; F17.210 Nicotine dependence, cigarettes, uncomplicated; Z88.2 Allergy status to sulfonamides; Z88.1 Allergy status to other antibiotic agents; Z88.6 Allergy status to analgesic agent; Z98.2 Presence of cerebrospinal fluid drainage device

== ENCOUNTER 2020-03-13 19:03 | Emergency (ER) | payer MEDICAID ==
[~2020-03-13] VITALS: Ht 165.1 cm; Wt 104.5 kg
[2020-03-13 19:14] VITALS: TEMP 98.6
[2020-03-13 19:38] LABS: COLLECTION METHOD CLEAN CATCH
[2020-03-13 19:47] LABS: MUCOUS Present /lpf; PH 5 (5-8); URINE APPEARANCE Cloudy; URINE BACTERIA Rare /hpf; URINE BILIRUBIN Negative (NEGATIVE); URINE BLOOD Negative (NEGATIVE); URINE COLOR Yellow; URINE GLUCOSE Negative (NEGATIVE); URINE KETONE Negative (NEGATIVE); URINE LEUKOCYTE ESTERASE 3+ (NEGATIVE); URINE NITRATE Negative (NEGATIVE); URINE PROTEIN(semi-quant) 1+ (NEGATIVE); URINE UROBILINOGEN Negative (NEGATIVE)
[2020-03-13 21:05] LABS: BASO # 0.1 (0.0-0.2); BASO % 0.4 % (0.0-2.0); EOS # 0.5 (0.0-0.7); EOS % 3.6 % (0-4.0); GRAN # 11.3 (1.4-6.5); GRAN % 75.6 % (42.2-75.2); HEMATOCRIT 43.9 % (37.0-47.0); HEMOGLOBIN 14.2 g/dl (12.5-16.0); LYMPH % 13.4 % (20.0-51.0); MEAN CELL VOLUME 74 fl (80.0-100.0); MEAN CORPUSCULAR HEMOGLOBIN 24 pg (27.0-31.0); MEAN CORPUSCULAR HGB CONC 32 g/dl (33.0-37.0); MEAN PLATELET VOLUME 10.3 fl (7.4-10.4); MONO % 6.7 % (1.7-9.3); PLATELET COUNT 270 K/mm3 (130-400); RED BLOOD COUNT 5.97 M/mm3 (4.10-5.30); REDCELL DISTRIBUTION WIDTH-CV 17.2 % (11.5-14.5)
[2020-03-13 21:17] LABS: ALBUMIN 4.5 gm/dL (3.5-5.0); BILIRUBIN,TOTAL 0.4 mg/dL (0.0-1.0); CALCIUM 9.9 mg/dL (8.4-10.2); CREATININE, serum 1.19 (0.52-1.25); POTASSIUM 3.8 mmol/L (3.4-5.0); TOTAL PROTEIN 7.9 gm/dL (6.4-8.2)
[2020-03-13] MEDS ORDERED: AMOXICILLIN 8751 TAB PO (22:35)
[2020-03-14 00:24] VITALS: BP 113/75; PULSE 87
[2020-03-14] MEDS ORDERED: PHENERGAN 25 TA25 MG PO (21:18)
== END 2020-03-14 00:27 | disposition home or self-care (01) ==
LOC: COL.ER 19:03
PROVIDERS: Physician Assistant
DX: N12 Tubulo-interstitial nephritis, not specified as acute or chronic (principal); F17.290 Nicotine dependence, other tobacco product, uncomplicated; Z32.02 Encounter for pregnancy test, result negative; Z98.2 Presence of cerebrospinal fluid drainage device; Z90.49 Acquired absence of other specified parts of digestive tract
CPT/HCPCS: J0696; J1170; J2405; J7030; Q9967

== ENCOUNTER 2020-03-14 18:39 | Emergency (ER) | payer MEDICAID ==
[2020-03-14 18:53] VITALS: TEMP 97.9
[2020-03-14 20:04] LABS: COLLECTION METHOD CATHETER
[2020-03-14 20:20] LABS: MUCOUS Present /lpf; PH 5 (5-8); URINE APPEARANCE Hazy; URINE BACTERIA Rare /hpf; URINE BILIRUBIN Negative (NEGATIVE); URINE BLOOD Negative (NEGATIVE); URINE COLOR Yellow; URINE GLUCOSE Negative (NEGATIVE); URINE KETONE 1+ (NEGATIVE); URINE LEUKOCYTE ESTERASE Negative (NEGATIVE); URINE NITRATE Negative (NEGATIVE); URINE PROTEIN(semi-quant) 2+ (NEGATIVE); URINE RBC 0-2 /hpf; URINE UROBILINOGEN Negative (NEGATIVE)
[2020-03-14] MEDS ORDERED: PHENERGAN 25 TA25 MG PO (21:18)
[2020-03-14 21:30] VITALS: BP 128/82; PULSE 85
--- NOTE | 2020-03-15 09:13 | NUR ---
TRACI received a consult for the patient last night at 2122, for medication assistance, 3 ED visits in one week, and her stating that she cannot afford her meds. TRACI contacted the patient. The patient reports that she lives in [place] with her boyfriend. She states that her mother also lives [facility]. She states that she going to school through an online college. The patient states that she does not have a PCP at this time, but that her insurance (Medicaid [place]) is setting her up with a PCP is [place]. She states that she did not pickling drum operator her medications last night, because they were closed. She states that she will pick them up today. The patient had been provided with GoodRx cards in the ED. TRACI informed the patient about [facility]. The patient reports that she has already heard of [facility] and has their contact information. The patient has no other questions or concerns for TRACI.
== END 2020-03-14 21:32 | disposition home or self-care (01) ==
LOC: COL.ER 18:39
PROVIDERS: Emergency Medicine
DX: R10.84 Generalized abdominal pain (principal); R11.2 Nausea with vomiting, unspecified; R19.7 Diarrhea, unspecified; R42 Dizziness and giddiness; Z88.2 Allergy status to sulfonamides; Z88.6 Allergy status to analgesic agent; Z98.84 Bariatric surgery status; Z98.2 Presence of cerebrospinal fluid drainage device
CPT/HCPCS: J0780; J1200; J1720

== ENCOUNTER → 2020-03-23 | Outpatient (CLI) | payer MEDICAID | LOC: COL.RAD 13:47 | DX: M54.2 Cervicalgia (principal); R29.818 Other symptoms and signs involving the nervous system | CPT/HCPCS: A9585 ==

== ENCOUNTER 2020-06-29 16:07 | Emergency (ER) | payer MEDICAID ==
[~2020-06-29] VITALS: Ht 154.9 cm; Wt 111.8 kg
[~2020-06-29 16:07] MED LIST changes: +CRESTOR 10MG10 MG PO; +DESYREL 50MG50 MG PO; +MASON NATURAL2000 IU PO; +NATURAL IRON65 MG PO; +SINGULAIR 110 MG/TAB PO
[2020-06-29 16:20] VITALS: TEMP 98.3
[2020-06-29 17:48] LABS: CALCIUM 9.3 mg/dL (8.4-10.2); CREATININE, serum 1.36 (0.52-1.25); POTASSIUM 4.1 mmol/L (3.4-5.0)
[2020-06-29] MEDS ORDERED: VALIUM 5MG T5 MG/TAB PO (18:42)
[2020-06-29] MEDS ORDERED: DIAST10 RC (18:42)
[2020-06-29 18:56] LABS: BASO # 0.1 (0.0-0.2); BASO % 0.5 % (0.0-2.0); EOS % 7.4 % (0-4.0); GRAN # 8.8 (1.4-6.5); GRAN % 65.4 % (42.2-75.2); HEMATOCRIT 43.1 % (37.0-47.0); HEMOGLOBIN 13.4 g/dl (12.5-16.0); LYMPH # 2.9 (1.2-3.4); LYMPH % 21.2 % (20.0-51.0); MEAN CELL VOLUME 76 fl (80.0-100.0); MEAN CORPUSCULAR HEMOGLOBIN 24 pg (27.0-31.0); MEAN CORPUSCULAR HGB CONC 31 g/dl (33.0-37.0); MEAN PLATELET VOLUME 10.6 fl (7.4-10.4); MONO # 0.7 (0.1-0.6); MONO % 5.1 % (1.7-9.3); PLATELET COUNT 348 K/mm3 (130-400); RED BLOOD COUNT 5.67 M/mm3 (4.10-5.30); REDCELL DISTRIBUTION WIDTH-CV 16.6 % (11.5-14.5)
[2020-06-29 19:00] VITALS: BP 136/72; PULSE 96
== END 2020-06-29 19:00 | disposition home or self-care (01) ==
LOC: COL.ER 16:07
PROVIDERS: Emergency Medicine
DX: R25.1 Tremor, unspecified (principal); G40.909 Epilepsy, unspecified, not intractable, without status epilepticus; E66.9 Obesity, unspecified; Z68.42 Body mass index [BMI] 45.0-49.9, adult; Z88.2 Allergy status to sulfonamides; Z88.6 Allergy status to analgesic agent; Z88.1 Allergy status to other antibiotic agents
CPT/HCPCS: J2060; J7120

== ENCOUNTER 2020-08-16 15:00 | Emergency (ER) | payer MEDICAID ==
[~2020-08-16] VITALS: Ht 154.9 cm; Wt 90.9 kg
[2020-08-16 15:00] VITALS: TEMP 98.1
[~2020-08-16 15:00] MED LIST changes: +DIAST10 RC
[2020-08-16 18:35] VITALS: BP 105/70; PULSE 96
[2020-08-17 13:16] LABS: COLLECTION METHOD CLEAN CATCH
[2020-08-17 14:31] LABS: PH 5 (5-8); URINE APPEARANCE Cloudy; URINE BILIRUBIN Negative (NEGATIVE); URINE BLOOD Negative (NEGATIVE); URINE COLOR Yellow; URINE GLUCOSE Negative (NEGATIVE); URINE KETONE Negative (NEGATIVE); URINE LEUKOCYTE ESTERASE 3+ (NEGATIVE); URINE NITRATE Negative (NEGATIVE); URINE PROTEIN(semi-quant) 1+ (NEGATIVE); URINE UROBILINOGEN Negative (NEGATIVE)
[2020-08-17 14:32] LABS: MUCOUS Present /lpf; SQUAMOUS EPITHELIAL 20-50 /hpf; URINE BACTERIA Rare /hpf
[2020-08-17 14:33] LABS: ALBUMIN 4.4 gm/dL (3.5-5.0); BILIRUBIN,TOTAL 0.4 mg/dL (0.0-1.0); CALCIUM 9.2 mg/dL (8.4-10.2); CREATININE, serum 1.21 (0.52-1.25); MAGNESIUM 2.2 mg/dL (1.6-2.3); POTASSIUM 4.1 mmol/L (3.4-5.0); TOTAL PROTEIN 7.9 gm/dL (6.4-8.2)
[2020-08-17 16:52] LABS: BASO # 0.1 (0.0-0.2); BASO % 0.3 % (0.0-2.0); EOS # 0.3 (0.0-0.7); EOS % 1.7 % (0-4.0); GRAN # 9.8 (1.4-6.5); GRAN % 64.8 % (42.2-75.2); HEMATOCRIT 43.5 % (37.0-47.0); HEMOGLOBIN 13.1 g/dl (12.5-16.0); LYMPH # 3.9 (1.2-3.4); LYMPH % 25.8 % (20.0-51.0); MEAN CELL VOLUME 80 fl (80.0-100.0); MEAN CORPUSCULAR HEMOGLOBIN 24 pg (27.0-31.0); MEAN CORPUSCULAR HGB CONC 30 g/dl (33.0-37.0); MEAN PLATELET VOLUME 10.1 fl (7.4-10.4); MONO % 6.7 % (1.7-9.3); PLATELET COUNT 298 K/mm3 (130-400); RED BLOOD COUNT 5.46 M/mm3 (4.10-5.30); REDCELL DISTRIBUTION WIDTH-CV 17.3 % (11.5-14.5)
[2021-02-24] MEDS ORDERED: PREDNISONE 5MG5 MG PO (19:48)
[2021-02-25] MEDS ORDERED: OMNICEF 300MG300 MG PO (14:56)
== END 2020-08-16 18:15 | disposition home or self-care (01) ==
LOC: COL.ER 15:00
PROVIDERS: Emergency Medicine
DX: G40.209 Localization-related (focal) (partial) symptomatic epilepsy and epileptic syndromes with complex partial seizures, not intractable, without status epilepticus (principal); F41.9 Anxiety disorder, unspecified; F31.9 Bipolar disorder, unspecified; I10 Essential (primary) hypertension; G43.909 Migraine, unspecified, not intractable, without status migrainosus; F17.290 Nicotine dependence, other tobacco product, uncomplicated

== ENCOUNTER 2020-09-04 18:41 | Emergency (ER) | payer MEDICAID ==
[~2020-09-04] VITALS: Ht 152.4 cm; Wt 113.6 kg
[2020-09-04 18:42] VITALS: TEMP 98.5
[2020-09-04 19:28] LABS: ALANINE AMINOTRANSFERASE 19 U/L (4-34); ALBUMIN 4.2 gm/dL (3.5-5.0); ALKALINE PHOSPHATASE 90 U/L (50-136); ANION GAP 11 mmol/L (7-16); AST,SGOT 22 U/L (15-37); BILIRUBIN,TOTAL < 0.1 mg/dL (0.0-1.0); BLOOD UREA NITROGEN 14 mg/dL (7-17); CALCIUM 9.3 mg/dL (8.4-10.2); CARBON DIOXIDE 24 mmol/L (22-30); CHLORIDE 106 mmol/L (98-107); CREATININE, serum 1.08 (0.52-1.25); GLUCOSE 79 mg/dL (74-106); POTASSIUM 4.1 mmol/L (3.4-5.0); SODIUM 141 mmol/L (137-145); TOTAL PROTEIN 7.3 gm/dL (6.4-8.2)
[2020-09-04 19:38] LABS: BASO # 0.1 (0.0-0.2); BASO % 0.5 % (0.0-2.0); EOS # 0.4 (0.0-0.7); EOS % 2.9 % (0-4.0); GRAN # 7.6 (1.4-6.5); GRAN % 59.9 % (42.2-75.2); HEMATOCRIT 42.5 % (37.0-47.0); HEMOGLOBIN 12.9 g/dl (12.5-16.0); LYMPH # 3.6 (1.2-3.4); LYMPH % 28.5 % (20.0-51.0); MEAN CELL VOLUME 80 fl (80.0-100.0); MEAN CORPUSCULAR HEMOGLOBIN 24 pg (27.0-31.0); MEAN CORPUSCULAR HGB CONC 30 g/dl (33.0-37.0); MEAN PLATELET VOLUME 10.2 fl (7.4-10.4); MONO % 7.9 % (1.7-9.3); PLATELET COUNT 296 K/mm3 (130-400); RED BLOOD COUNT 5.32 M/mm3 (4.10-5.30); REDCELL DISTRIBUTION WIDTH-CV 16.1 % (11.5-14.5)
[2020-09-04 19:59] LABS: COLLECTION METHOD CATHETER
[2020-09-04 20:08] LABS: MUCOUS Present /lpf; PH 6 (5-8); URINE APPEARANCE Hazy; URINE BACTERIA None Seen /hpf; URINE BILIRUBIN Negative (NEGATIVE); URINE BLOOD Negative (NEGATIVE); URINE COLOR Yellow; URINE GLUCOSE Negative (NEGATIVE); URINE KETONE Negative (NEGATIVE); URINE LEUKOCYTE ESTERASE Negative (NEGATIVE); URINE NITRATE Negative (NEGATIVE); URINE PROTEIN(semi-quant) 1+ (NEGATIVE); URINE RBC 0-2 /hpf; URINE UROBILINOGEN Negative (NEGATIVE)
[2020-09-04 20:15] LABS: TRICYCLIC ANTIDEPRESS URINE POSITIVE
[2020-09-04 22:30] VITALS: BP 143/98; PULSE 97
[2021-02-24] MEDS ORDERED: PREDNISONE 5MG5 MG PO (19:48)
[2021-02-25] MEDS ORDERED: OMNICEF 300MG300 MG PO (14:56)
== END 2020-09-04 22:30 | disposition home or self-care (01) ==
LOC: COL.ER 18:41
PROVIDERS: Family Medicine
DX: F44.5 Conversion disorder with seizures or convulsions (principal); F17.290 Nicotine dependence, other tobacco product, uncomplicated; Z88.2 Allergy status to sulfonamides; Z88.6 Allergy status to analgesic agent; Z88.1 Allergy status to other antibiotic agents; Z88.8 Allergy status to other drugs, medicaments and biological substances
CPT/HCPCS: J1953; J2405; J3010

== ENCOUNTER 2020-09-10 17:17 | Emergency (ER) | payer MEDICAID ==
[~2020-09-10] VITALS: Ht 152.4 cm; Wt 136.4 kg
[2020-09-10 17:23] VITALS: TEMP 98.9
[2020-09-10 17:35] VITALS: BP 133/76; PULSE 81
[2021-02-24] MEDS ORDERED: PREDNISONE 5MG5 MG PO (19:48)
[2021-02-25] MEDS ORDERED: OMNICEF 300MG300 MG PO (14:56)
== END 2020-09-10 17:52 | disposition left against medical advice (07) ==
LOC: COL.ER 17:17
DX: R55 Syncope and collapse (principal)

== ENCOUNTER 2020-10-01 17:41 | Emergency (ER) | payer MEDICAID ==
[~2020-10-01] VITALS: Ht 152.4 cm; Wt 115.5 kg
[2020-10-01] MEDS ORDERED: KAPSPARGO SPRIN50 MG PO (18:14)
[2020-10-01 18:28] LABS: COLLECTION METHOD CLEAN CATCH
[2020-10-01 18:41] LABS: MUCOUS Present /lpf; PH 7 (5-8); URINE APPEARANCE Hazy; URINE BACTERIA Rare /hpf; URINE BILIRUBIN Negative (NEGATIVE); URINE BLOOD Negative (NEGATIVE); URINE COLOR Yellow; URINE GLUCOSE Negative (NEGATIVE); URINE KETONE Negative (NEGATIVE); URINE LEUKOCYTE ESTERASE 2+ (NEGATIVE); URINE NITRATE Negative (NEGATIVE); URINE PROTEIN(semi-quant) 1+ (NEGATIVE); URINE RBC 0-2 /hpf; URINE UROBILINOGEN Negative (NEGATIVE)
[2020-10-01 18:45] LABS: BASO # 0.1 (0.0-0.2); BASO % 0.4 % (0.0-2.0); EOS # 0.3 (0.0-0.7); EOS % 1.9 % (0-4.0); GRAN # 10.7 (1.4-6.5); GRAN % 76.7 % (42.2-75.2); HEMATOCRIT 44.6 % (37.0-47.0); HEMOGLOBIN 13.8 g/dl (12.5-16.0); LYMPH # 2.2 (1.2-3.4); LYMPH % 15.5 % (20.0-51.0); MEAN CELL VOLUME 78 fl (80.0-100.0); MEAN CORPUSCULAR HEMOGLOBIN 24 pg (27.0-31.0); MEAN CORPUSCULAR HGB CONC 31 g/dl (33.0-37.0); MONO # 0.7 (0.1-0.6); MONO % 5.2 % (1.7-9.3); PLATELET COUNT 341 K/mm3 (130-400); RED BLOOD COUNT 5.69 M/mm3 (4.10-5.30); REDCELL DISTRIBUTION WIDTH-CV 16.3 % (11.5-14.5)
[2020-10-01 19:20] LABS: ALBUMIN 4.8 gm/dL (3.5-5.0); BILIRUBIN,TOTAL 0.1 mg/dL (0.0-1.0); CREATININE, serum 1.3 (0.52-1.25); POTASSIUM 3.8 mmol/L (3.4-5.0); TOTAL PROTEIN 9.1 gm/dL (6.4-8.2)
[2020-10-01 19:21] LABS: C-REACTIVE PROTEIN 0.5 mg/dL (0.0-0.9)
[2020-10-01] MEDS ORDERED: PHENERGAN 25 TA25 MG PO (19:52)
[2020-10-01 20:02] VITALS: BP 123/76; PULSE 62; TEMP 98.1
[2021-02-24] MEDS ORDERED: PREDNISONE 5MG5 MG PO (19:48)
[2021-02-25] MEDS ORDERED: OMNICEF 300MG300 MG PO (14:56)
== END 2020-10-01 20:02 | disposition home or self-care (01) ==
LOC: COL.ER 17:41
PROVIDERS: Nurse Practitioner
DX: R11.2 Nausea with vomiting, unspecified (principal); R19.7 Diarrhea, unspecified; R10.30 Lower abdominal pain, unspecified; F17.290 Nicotine dependence, other tobacco product, uncomplicated; G40.409 Other generalized epilepsy and epileptic syndromes, not intractable, without status epilepticus; Z98.84 Bariatric surgery status; Z88.2 Allergy status to sulfonamides; Z88.6 Allergy status to analgesic agent; Z88.1 Allergy status to other antibiotic agents
CPT/HCPCS: J1885; J2405; J7030

== ENCOUNTER 2020-10-02 17:38 | Emergency (ER) | payer MEDICAID ==
[~2020-10-02] VITALS: Ht 152.4 cm; Wt 115.5 kg
[~2020-10-02 17:38] MED LIST changes: +KAPSPARGO SPRIN50 MG PO
[2020-10-02 17:42] VITALS: TEMP 98.2
[2020-10-02 19:05] LABS: BASO % 0.3 % (0.0-2.0); EOS # 0.3 (0.0-0.7); EOS % 2.2 % (0-4.0); GRAN % 71.7 % (42.2-75.2); HEMATOCRIT 46.9 % (37.0-47.0); HEMOGLOBIN 14.5 g/dl (12.5-16.0); LYMPH # 2.4 (1.2-3.4); LYMPH % 18.8 % (20.0-51.0); MEAN CELL VOLUME 77 fl (80.0-100.0); MEAN CORPUSCULAR HEMOGLOBIN 24 pg (27.0-31.0); MEAN CORPUSCULAR HGB CONC 31 g/dl (33.0-37.0); MONO # 0.8 (0.1-0.6); MONO % 6.7 % (1.7-9.3); PLATELET COUNT 346 K/mm3 (130-400); RED BLOOD COUNT 6.09 M/mm3 (4.10-5.30); REDCELL DISTRIBUTION WIDTH-CV 16.4 % (11.5-14.5)
[2020-10-02 19:14] LABS: BILIRUBIN,TOTAL 0.2 mg/dL (0.0-1.0); CALCIUM 10.4 mg/dL (8.4-10.2); CREATININE, serum 1.3 (0.52-1.25)
[2020-10-02 20:26] VITALS: BP 102/67; PULSE 69
[2021-02-24] MEDS ORDERED: PREDNISONE 5MG5 MG PO (19:48)
[2021-02-25] MEDS ORDERED: OMNICEF 300MG300 MG PO (14:56)
== END 2020-10-02 20:32 | disposition short-term general hospital (02) ==
LOC: COL.ER 17:38
PROVIDERS: Nurse Practitioner Primary Care
DX: E27.2 Addisonian crisis (principal); F31.9 Bipolar disorder, unspecified; J45.909 Unspecified asthma, uncomplicated; F17.290 Nicotine dependence, other tobacco product, uncomplicated; Z20.822 Contact with and (suspected) exposure to COVID-19; Z88.2 Allergy status to sulfonamides; Z88.6 Allergy status to analgesic agent; Z88.1 Allergy status to other antibiotic agents; Z88.8 Allergy status to other drugs, medicaments and biological substances

== ENCOUNTER 2020-10-16 10:01 | Emergency (ER) | payer MEDICAID ==
[~2020-10-16] VITALS: Ht 152.4 cm; Wt 113.2 kg
[2020-10-16 10:02] VITALS: TEMP 97.7
[2020-10-16] MEDS ORDERED: NORCO 325 MG-51 TAB PO (11:26)
[2020-10-16 11:53] VITALS: BP 126/88; PULSE 89
[2021-02-24] MEDS ORDERED: PREDNISONE 5MG5 MG PO (19:48)
[2021-02-25] MEDS ORDERED: OMNICEF 300MG300 MG PO (14:56)
== END 2020-10-16 11:52 | disposition home or self-care (01) ==
LOC: COL.ER 10:01
DX: S93.402A Sprain of unspecified ligament of left ankle, initial encounter (principal); F17.210 Nicotine dependence, cigarettes, uncomplicated; Z88.2 Allergy status to sulfonamides; Z88.6 Allergy status to analgesic agent; Z88.1 Allergy status to other antibiotic agents; W18.42XA Slipping, tripping and stumbling without falling due to stepping into hole or opening, initial encounter; X50.1XXA Overexertion from prolonged static or awkward postures, initial encounter
CPT/HCPCS: J1885; L4386

== ENCOUNTER 2020-11-10 18:25 | Emergency (ER) | payer MEDICAID ==
[~2020-11-10] VITALS: Ht 152.4 cm; Wt 111.4 kg
[2020-11-10 19:24] VITALS: BP 132/94; TEMP 97.3
[2020-11-10 21:30] VITALS: PULSE 80
[2021-02-24] MEDS ORDERED: PREDNISONE 5MG5 MG PO (19:48)
[2021-02-25] MEDS ORDERED: OMNICEF 300MG300 MG PO (14:56)
== END 2020-11-10 21:31 | disposition home or self-care (01) ==
LOC: COL.ER 18:25
DX: S93.402A Sprain of unspecified ligament of left ankle, initial encounter (principal); X58.XXXA Exposure to other specified factors, initial encounter

== ENCOUNTER 2020-11-18 21:03 | Emergency (ER) | payer MEDICAID ==
[~2020-11-18] VITALS: Ht 152.4 cm; Wt 113.6 kg
[2020-11-18 21:06] VITALS: TEMP 98.2
[2020-11-18 21:44] LABS: BASO # 0.1 (0.0-0.2); BASO % 0.4 % (0.0-2.0); EOS # 0.5 (0.0-0.7); EOS % 4.7 % (0-4.0); GRAN # 6.3 (1.4-6.5); GRAN % 56.5 % (42.2-75.2); HEMATOCRIT 43.6 % (37.0-47.0); HEMOGLOBIN 13.8 g/dl (12.5-16.0); LYMPH # 3.5 (1.2-3.4); LYMPH % 30.8 % (20.0-51.0); MEAN CELL VOLUME 74 fl (80.0-100.0); MEAN CORPUSCULAR HEMOGLOBIN 24 pg (27.0-31.0); MEAN CORPUSCULAR HGB CONC 32 g/dl (33.0-37.0); MEAN PLATELET VOLUME 10.2 fl (7.4-10.4); MONO # 0.8 (0.1-0.6); MONO % 7.2 % (1.7-9.3); PLATELET COUNT 310 K/mm3 (130-400); RED BLOOD COUNT 5.86 M/mm3 (4.10-5.30); REDCELL DISTRIBUTION WIDTH-CV 15.9 % (11.5-14.5)
[2020-11-18 21:55] LABS: ALBUMIN 4.5 gm/dL (3.5-5.0); BILIRUBIN,TOTAL 0.2 mg/dL (0.0-1.0); CALCIUM 9.5 mg/dL (8.4-10.2); CREATININE, serum 1.14 (0.52-1.25); POTASSIUM 3.8 mmol/L (3.4-5.0); TOTAL PROTEIN 8.3 gm/dL (6.4-8.2)
[2020-11-18 21:56] LABS: COLLECTION METHOD CLEAN CATCH
[2020-11-18 22:09] LABS: MUCOUS Present /lpf; PH 5 (5-8); URINE APPEARANCE Hazy; URINE BACTERIA Rare /hpf; URINE BILIRUBIN Negative (NEGATIVE); URINE BLOOD Negative (NEGATIVE); URINE COLOR Yellow; URINE GLUCOSE Negative (NEGATIVE); URINE KETONE Negative (NEGATIVE); URINE LEUKOCYTE ESTERASE 2+ (NEGATIVE); URINE NITRATE Negative (NEGATIVE); URINE PROTEIN(semi-quant) 1+ (NEGATIVE); URINE RBC 0-2 /hpf; URINE UROBILINOGEN Negative (NEGATIVE)
[2020-11-19 01:30] VITALS: BP 128/90; PULSE 80
[2021-02-24] MEDS ORDERED: PREDNISONE 5MG5 MG PO (19:48)
[2021-02-25] MEDS ORDERED: OMNICEF 300MG300 MG PO (14:56)
== END 2020-11-19 01:40 | disposition home or self-care (01) ==
LOC: COL.ER 21:03
PROVIDERS: Personal Emergency Response Attendant
DX: R10.11 Right upper quadrant pain (principal); R11.0 Nausea; D72.829 Elevated white blood cell count, unspecified; Z87.442 Personal history of urinary calculi; Z98.84 Bariatric surgery status; Z32.02 Encounter for pregnancy test, result negative
CPT/HCPCS: J2270; J2405; J7030

== ENCOUNTER 2020-11-28 15:26 | Emergency (ER) | payer MEDICAID ==
[~2020-11-28] VITALS: Ht 154.9 cm; Wt 113.2 kg
[2020-11-28 15:27] VITALS: TEMP 98.1
[2020-11-28 17:03] VITALS: BP 135/99; PULSE 92
[2020-11-28] MEDS ORDERED: VALIUM 5MG T5 MG/TAB PO (17:03)
[2021-02-24] MEDS ORDERED: PREDNISONE 5MG5 MG PO (19:48)
[2021-02-25] MEDS ORDERED: OMNICEF 300MG300 MG PO (14:56)
== END 2020-11-28 17:13 | disposition home or self-care (01) ==
LOC: COL.ER 15:26
DX: R56.9 Unspecified convulsions (principal); F31.9 Bipolar disorder, unspecified; Z79.899 Other long term (current) drug therapy

== ENCOUNTER 2020-12-07 15:56 | Emergency (ER) | payer MEDICAID ==
[~2020-12-07] VITALS: Ht 152.4 cm; Wt 112.7 kg
[2020-12-07 15:57] VITALS: TEMP 98.5
[2020-12-07 17:25] VITALS: BP 114/70; PULSE 97
[2020-12-08] MEDS ORDERED: AMITRIPTYLINE H25 M1 PO (08:00)
[2020-12-08] MEDS ORDERED: ZYRTEC 10MG10 MG PO (08:00)
[2020-12-08] MEDS ORDERED: KLONOPIN 1MG1 MG PO (08:01)
[2020-12-08] MEDS ORDERED: NEURONTIN100 MG/CAP PO (08:02)
[2020-12-08] MEDS ORDERED: ATARAX 25MG25 MG/TAB PO (08:02)
[2020-12-08] MEDS ORDERED: FLONASEALLERGY NS (08:02)
[2020-12-08] MEDS ORDERED: TOPROL XL 25MG25 MG PO (08:03)
[2020-12-08] MEDS ORDERED: MIRALAX PA17 GM/Dose PO (08:03)
[2020-12-08] MEDS ORDERED: NORCO 325 MG-51 TAB PO (08:04)
[2020-12-08] MEDS ORDERED: SINGULAIR 110 MG/TAB PO (08:04)
[2020-12-08] MEDS ORDERED: PREDNISONE 5MG5 MG PO (08:05)
[2020-12-08] MEDS ORDERED: PROTONIX 40MG T40 MG PO (08:05)
[2020-12-08] MEDS ORDERED: PHENERGAN 25 TA25 MG PO (08:05)
[2020-12-08] MEDS ORDERED: CRESTOR 10MG10 MG PO (08:06)
[2020-12-08] MEDS ORDERED: SEROQUEL400 MG PO (08:06)
[2020-12-08] MEDS ORDERED: DESYREL 50MG50 MG PO (08:07)
[2020-12-08] MEDS ORDERED: ZANAFLEX 4MG TAB4 MG PO (08:07)
[2021-02-24] MEDS ORDERED: PREDNISONE 5MG5 MG PO (19:48)
[2021-02-25] MEDS ORDERED: OMNICEF 300MG300 MG PO (14:56)
== END 2020-12-07 17:25 | disposition home or self-care (01) ==
LOC: COL.ER 15:56
DX: R56.9 Unspecified convulsions (principal); H57.02 Anisocoria; F31.9 Bipolar disorder, unspecified; F17.290 Nicotine dependence, other tobacco product, uncomplicated; Z79.899 Other long term (current) drug therapy

== ENCOUNTER 2020-12-08 07:38 | Day surgery (SDC) | payer MEDICAID ==
[~2020-12-08] VITALS: Ht 152.4 cm; Wt 112.5 kg
[2020-12-08] MEDS ORDERED: AMITRIPTYLINE H25 M1 PO (08:00)
[2020-12-08] MEDS ORDERED: ZYRTEC 10MG10 MG PO (08:00)
[2020-12-08] MEDS ORDERED: KLONOPIN 1MG1 MG PO (08:01)
[2020-12-08] MEDS ORDERED: FLONASEALLERGY NS (08:02)
[2020-12-08] MEDS ORDERED: ATARAX 25MG25 MG/TAB PO (08:02)
[2020-12-08] MEDS ORDERED: NEURONTIN100 MG/CAP PO (08:02)
[2020-12-08] MEDS ORDERED: MIRALAX PA17 GM/Dose PO (08:03)
[2020-12-08] MEDS ORDERED: TOPROL XL 25MG25 MG PO (08:03)
[2020-12-08] MEDS ORDERED: NORCO 325 MG-51 TAB PO (08:04)
[2020-12-08] MEDS ORDERED: SINGULAIR 110 MG/TAB PO (08:04)
[2020-12-08] MEDS ORDERED: PREDNISONE 5MG5 MG PO (08:05)
[2020-12-08] MEDS ORDERED: PHENERGAN 25 TA25 MG PO (08:05)
[2020-12-08] MEDS ORDERED: PROTONIX 40MG T40 MG PO (08:05)
[2020-12-08] MEDS ORDERED: SEROQUEL400 MG PO (08:06)
[2020-12-08] MEDS ORDERED: CRESTOR 10MG10 MG PO (08:06)
[2020-12-08 08:07] VITALS: BP 138/99; PULSE 94; TEMP 97
[2020-12-08] MEDS ORDERED: ZANAFLEX 4MG TAB4 MG PO (08:07)
[2020-12-08] MEDS ORDERED: DESYREL 50MG50 MG PO (08:07)
[2020-12-08 09:50] VITALS: BP 135/91; PULSE 84
--- NOTE | 2020-12-08 09:50 | NUR ---
Patient returns back to [facility] [address] per cart and transfers from cart to relciner with 2 person assist. IV fluids infusing and site is free of redness or swelling. Call light in reach and is sipping on Sprite.
[2020-12-08 10:05] VITALS: BP 118/79; PULSE 88
--- NOTE | 2020-12-08 10:05 | NUR ---
Resting and denies discomfort. Given muffin to eat.
[2020-12-08 10:20] VITALS: BP 121/83; PULSE 89
--- NOTE | 2020-12-08 10:20 | NUR ---
Tolerated muffin and Sprite. Denies difficulty swallowing. IV fluids continue to infuse.
--- NOTE | 2020-12-08 10:30 | NUR ---
Dr. Perez here and talks with the patient and all questions answered.
--- NOTE | 2020-12-08 10:35 | NUR ---
IV was discontinued and site is free of redness or swelling. Patient dresses self and discharged to home driven by friend with dismissal instructions in hand.
[2021-02-24] MEDS ORDERED: PREDNISONE 5MG5 MG PO (19:48)
[2021-02-25] MEDS ORDERED: OMNICEF 300MG300 MG PO (14:56)
== END 2020-12-08 10:35 | disposition home or self-care (01) ==
LOC: SDCO 07:38
DX: K21.00 Gastro-esophageal reflux disease with esophagitis, without bleeding (principal); K29.70 Gastritis, unspecified, without bleeding; K44.9 Diaphragmatic hernia without obstruction or gangrene; K22.10 Ulcer of esophagus without bleeding; K59.00 Constipation, unspecified; E27.40 Unspecified adrenocortical insufficiency; G47.33 Obstructive sleep apnea (adult) (pediatric); H46.9 Unspecified optic neuritis; J44.9 Chronic obstructive pulmonary disease, unspecified; Q14.2 Congenital malformation of optic disc; Q63.1 Lobulated, fused and horseshoe kidney; I10 Essential (primary) hypertension; D50.9 Iron deficiency anemia, unspecified; N39.0 Urinary tract infection, site not specified; F31.9 Bipolar disorder, unspecified; F41.9 Anxiety disorder, unspecified; F17.210 Nicotine dependence, cigarettes, uncomplicated; G40.309 Generalized idiopathic epilepsy and epileptic syndromes, not intractable, without status epilepticus; Z80.6 Family history of leukemia; Z98.84 Bariatric surgery status; Z20.822 Contact with and (suspected) exposure to COVID-19; Z79.899 Other long term (current) drug therapy; Z99.89 Dependence on other enabling machines and devices; Z79.891 Long term (current) use of opiate analgesic; Z90.49 Acquired absence of other specified parts of digestive tract
CPT/HCPCS: J7120

== ENCOUNTER 2020-12-12 14:36 | Emergency (ER) | payer MEDICAID ==
[~2020-12-12] VITALS: Ht 154.9 cm; Wt 114.1 kg
[~2020-12-12 14:36] MED LIST changes: +FLONASEALLERGY NS; +MIRALAX PA17 GM/Dose PO; +NEURONTIN100 MG/CAP PO; +PREDNISONE 5MG5 MG PO; +SEROQUEL400 MG PO; +TOPROL XL 25MG25 MG PO; +ZANAFLEX 4MG TAB4 MG PO
[2020-12-12 14:38] VITALS: TEMP 98.6
[2020-12-12 15:42] LABS: BASO # 0.1 (0.0-0.2); BASO % 0.6 % (0.0-2.0); EOS # 0.4 (0.0-0.7); EOS % 3.6 % (0-4.0); GRAN # 7.5 (1.4-6.5); GRAN % 67.5 % (42.2-75.2); HEMATOCRIT 44.3 % (37.0-47.0); HEMOGLOBIN 14.1 g/dl (12.5-16.0); LYMPH # 2.4 (1.2-3.4); LYMPH % 21.3 % (20.0-51.0); MEAN CELL VOLUME 75 fl (80.0-100.0); MEAN CORPUSCULAR HEMOGLOBIN 24 pg (27.0-31.0); MEAN CORPUSCULAR HGB CONC 32 g/dl (33.0-37.0); MEAN PLATELET VOLUME 10.3 fl (7.4-10.4); MONO # 0.8 (0.1-0.6); MONO % 6.8 % (1.7-9.3); PLATELET COUNT 313 K/mm3 (130-400); RED BLOOD COUNT 5.93 M/mm3 (4.10-5.30); REDCELL DISTRIBUTION WIDTH-CV 15.8 % (11.5-14.5)
[2020-12-12 15:55] LABS: ALBUMIN 4.4 gm/dL (3.5-5.0); BILIRUBIN,TOTAL 0.3 mg/dL (0.0-1.0); CALCIUM 10.2 mg/dL (8.4-10.2); CREATININE, serum 0.94 (0.52-1.25); POTASSIUM 4.2 mmol/L (3.4-5.0); TOTAL PROTEIN 7.8 gm/dL (6.4-8.2)
[2020-12-12] MEDS ORDERED: PHENERGAN 25 TA25 MG PO (16:36)
[2020-12-12 16:52] VITALS: BP 117/93; PULSE 105
[2021-02-24] MEDS ORDERED: PREDNISONE 5MG5 MG PO (19:48)
[2021-02-25] MEDS ORDERED: OMNICEF 300MG300 MG PO (14:56)
== END 2020-12-12 16:56 | disposition home or self-care (01) ==
LOC: COL.ER 14:36
PROVIDERS: Nurse Practitioner Primary Care
DX: M54.2 Cervicalgia (principal); F31.9 Bipolar disorder, unspecified; F17.200 Nicotine dependence, unspecified, uncomplicated; Z88.5 Allergy status to narcotic agent; W19.XXXA Unspecified fall, initial encounter
CPT/HCPCS: J1885; J2550

== ENCOUNTER 2020-12-13 16:47 | Emergency (ER) | payer MEDICAID ==
[~2020-12-13] VITALS: Ht 154.9 cm; Wt 114.1 kg
[2020-12-13 16:58] VITALS: TEMP 97.4
[2020-12-13 17:30] LABS: BASO # 0.1 (0.0-0.2); BASO % 0.6 % (0.0-2.0); EOS # 0.6 (0.0-0.7); EOS % 4.5 % (0-4.0); GRAN # 8.9 (1.4-6.5); GRAN % 63.1 % (42.2-75.2); HEMATOCRIT 43.8 % (37.0-47.0); HEMOGLOBIN 13.6 g/dl (12.5-16.0); LYMPH # 3.2 (1.2-3.4); MEAN CELL VOLUME 77 fl (80.0-100.0); MEAN CORPUSCULAR HEMOGLOBIN 24 pg (27.0-31.0); MEAN CORPUSCULAR HGB CONC 31 g/dl (33.0-37.0); MEAN PLATELET VOLUME 10.3 fl (7.4-10.4); MONO # 1.2 (0.1-0.6); MONO % 8.6 % (1.7-9.3); PLATELET COUNT 313 K/mm3 (130-400); RED BLOOD COUNT 5.71 M/mm3 (4.10-5.30); REDCELL DISTRIBUTION WIDTH-CV 15.8 % (11.5-14.5)
[2020-12-13 17:43] LABS: ALANINE AMINOTRANSFERASE 21 U/L (4-34); ALBUMIN 4.2 gm/dL (3.5-5.0); ALKALINE PHOSPHATASE 85 U/L (50-136); ANION GAP 6 mmol/L (7-16); AST,SGOT 28 U/L (15-37); BILIRUBIN,TOTAL 0.2 mg/dL (0.0-1.0); BLOOD UREA NITROGEN 12 mg/dL (7-17); CALCIUM 9.4 mg/dL (8.4-10.2); CARBON DIOXIDE 27 mmol/L (22-30); CHLORIDE 107 mmol/L (98-107); CREATININE, serum 1.04 (0.52-1.25); GLUCOSE 100 mg/dL (74-106); POTASSIUM 4.3 mmol/L (3.4-5.0); SALICYLATE 1.2 mg/dL; SODIUM 140 mmol/L (137-145); TOTAL PROTEIN 7.5 gm/dL (6.4-8.2)
[2020-12-13 17:44] LABS: ALCOHOL(ethanol),MEDICAL < 10 mg/dL
[2020-12-13 18:03] LABS: ACETAMINOPHEN 218 ug/mL (10-30)
[2020-12-13 18:22] LABS: COLLECTION METHOD CLEAN CATCH
[2020-12-13 18:35] LABS: MUCOUS Present /lpf; PH 5 (5-8); URINE APPEARANCE Cloudy; URINE BACTERIA Rare /hpf; URINE BILIRUBIN Positive (NEGATIVE); URINE BLOOD 3+ (NEGATIVE); URINE COLOR Amber; URINE GLUCOSE Negative (NEGATIVE); URINE KETONE Trace (NEGATIVE); URINE LEUKOCYTE ESTERASE 3+ (NEGATIVE); URINE NITRATE Negative (NEGATIVE); URINE PROTEIN(semi-quant) 1+ (NEGATIVE); URINE RBC >50 /hpf
[2020-12-13 18:41] LABS: TRICYCLIC ANTIDEPRESS URINE POSITIVE
[2020-12-13 19:29] LABS: PROTHROMBIN TIME 10.8 SECONDS (9.7-12.8)
[2020-12-14 00:15] VITALS: BP 132/89; PULSE 81
[2021-02-24] MEDS ORDERED: PREDNISONE 5MG5 MG PO (19:48)
[2021-02-25] MEDS ORDERED: OMNICEF 300MG300 MG PO (14:56)
== END 2020-12-14 00:15 | disposition short-term general hospital (02) ==
LOC: COL.ER 16:47
PROVIDERS: Nurse Practitioner
DX: T39.1X2A Poisoning by 4-Aminophenol derivatives, intentional self-harm, initial encounter (principal); R11.0 Nausea; F31.9 Bipolar disorder, unspecified; F17.290 Nicotine dependence, other tobacco product, uncomplicated; F17.210 Nicotine dependence, cigarettes, uncomplicated; Z88.6 Allergy status to analgesic agent; Z88.8 Allergy status to other drugs, medicaments and biological substances
CPT/HCPCS: J0132; J7070

== ENCOUNTER 2021-01-09 15:58 | Emergency (ER) | payer MEDICAID ==
[~2021-01-09] VITALS: Ht 154.9 cm; Wt 113.2 kg
[2021-01-09 16:02] VITALS: TEMP 98
[2021-01-09 16:29] LABS: BASO # 0.1 (0.0-0.2); BASO % 0.5 % (0.0-2.0); EOS # 0.7 (0.0-0.7); EOS % 4.8 % (0-4.0); GRAN # 10.4 (1.4-6.5); GRAN % 71.8 % (42.2-75.2); HEMATOCRIT 41.4 % (37.0-47.0); HEMOGLOBIN 12.8 g/dl (12.5-16.0); LYMPH # 2.6 (1.2-3.4); LYMPH % 17.7 % (20.0-51.0); MEAN CELL VOLUME 77 fl (80.0-100.0); MEAN CORPUSCULAR HEMOGLOBIN 24 pg (27.0-31.0); MEAN CORPUSCULAR HGB CONC 31 g/dl (33.0-37.0); MEAN PLATELET VOLUME 10.4 fl (7.4-10.4); MONO # 0.7 (0.1-0.6); MONO % 4.8 % (1.7-9.3); PLATELET COUNT 285 K/mm3 (130-400); RED BLOOD COUNT 5.41 M/mm3 (4.10-5.30); REDCELL DISTRIBUTION WIDTH-CV 15.9 % (11.5-14.5)
[2021-01-09 16:39] LABS: ALANINE AMINOTRANSFERASE 18 U/L (4-34); ALBUMIN 4.4 gm/dL (3.5-5.0); ALKALINE PHOSPHATASE 89 U/L (50-136); AST,SGOT 27 U/L (15-37); BILIRUBIN,TOTAL 0.4 mg/dL (0.0-1.0); BLOOD UREA NITROGEN 14 mg/dL (7-17); CALCIUM 10.1 mg/dL (8.4-10.2); CARBON DIOXIDE 26 mmol/L (22-30); CHLORIDE 110 mmol/L (98-107); GLUCOSE 85 mg/dL (74-106); POTASSIUM 4.2 mmol/L (3.4-5.0); TOTAL PROTEIN 7.8 gm/dL (6.4-8.2)
[2021-01-09 16:51] LABS: SODIUM 140 mmol/L (137-145); TROPONIN-I < 0.012 ng/mL (0.000-0.035)
[2021-01-09 16:53] LABS: ANION GAP 4 mmol/L (7-16)
[2021-01-09 19:18] VITALS: BP 131/73; PULSE 94
[2021-02-24] MEDS ORDERED: PREDNISONE 5MG5 MG PO (19:48)
[2021-02-25] MEDS ORDERED: OMNICEF 300MG300 MG PO (14:56)
== END 2021-01-09 19:20 | disposition home or self-care (01) ==
LOC: COL.ER 15:58
PROVIDERS: Emergency Medicine
DX: R07.2 Precordial pain (principal); R10.13 Epigastric pain; K21.9 Gastro-esophageal reflux disease without esophagitis; I10 Essential (primary) hypertension; F31.9 Bipolar disorder, unspecified; G40.909 Epilepsy, unspecified, not intractable, without status epilepticus; F17.290 Nicotine dependence, other tobacco product, uncomplicated; Z79.899 Other long term (current) drug therapy; Z88.6 Allergy status to analgesic agent

== ENCOUNTER 2021-01-10 19:31 | Emergency (ER) | payer MEDICAID ==
[~2021-01-10] VITALS: Ht 154.9 cm; Wt 113.2 kg
[2021-01-10 19:46] VITALS: TEMP 98.4
[2021-01-10 20:24] LABS: BASO # 0.1 (0.0-0.2); BASO % 0.5 % (0.0-2.0); EOS # 0.8 (0.0-0.7); EOS % 6.2 % (0-4.0); GRAN # 7.2 (1.4-6.5); GRAN % 54.1 % (42.2-75.2); HEMATOCRIT 41.8 % (37.0-47.0); LYMPH # 4.3 (1.2-3.4); LYMPH % 32.3 % (20.0-51.0); MEAN CELL VOLUME 77 fl (80.0-100.0); MEAN CORPUSCULAR HEMOGLOBIN 24 pg (27.0-31.0); MEAN CORPUSCULAR HGB CONC 31 g/dl (33.0-37.0); MEAN PLATELET VOLUME 10.9 fl (7.4-10.4); MONO # 0.9 (0.1-0.6); MONO % 6.6 % (1.7-9.3); PLATELET COUNT 306 K/mm3 (130-400); RED BLOOD COUNT 5.45 M/mm3 (4.10-5.30); REDCELL DISTRIBUTION WIDTH-CV 15.9 % (11.5-14.5)
[2021-01-10 20:43] LABS: ALBUMIN 4.4 gm/dL (3.5-5.0); BILIRUBIN,TOTAL 0.3 mg/dL (0.0-1.0); CALCIUM 9.4 mg/dL (8.4-10.2); CREATININE, serum 1.06 (0.52-1.25); POTASSIUM 4.2 mmol/L (3.4-5.0); TOTAL PROTEIN 7.8 gm/dL (6.4-8.2)
[2021-01-10 23:16] VITALS: BP 119/78; PULSE 89
[2021-02-24] MEDS ORDERED: PREDNISONE 5MG5 MG PO (19:48)
[2021-02-25] MEDS ORDERED: OMNICEF 300MG300 MG PO (14:56)
== END 2021-01-10 23:16 | disposition home or self-care (01) ==
LOC: COL.ER 19:31
PROVIDERS: Emergency Medicine
DX: G40.909 Epilepsy, unspecified, not intractable, without status epilepticus (principal); R68.84 Jaw pain; Z79.899 Other long term (current) drug therapy; Z88.6 Allergy status to analgesic agent
CPT/HCPCS: J1630; J1953; J2270; J2405; J3360; J7030

== ENCOUNTER 2021-01-13 19:54 | Emergency (ER) | payer MEDICAID ==
[~2021-01-13] VITALS: Ht 154.9 cm; Wt 113.2 kg
[2021-01-13 20:38] LABS: BASO # 0.1 (0.0-0.2); BASO % 0.5 % (0.0-2.0); EOS # 0.8 (0.0-0.7); EOS % 6.7 % (0-4.0); GRAN # 6.8 (1.4-6.5); HEMATOCRIT 42.8 % (37.0-47.0); HEMOGLOBIN 13.6 g/dl (12.5-16.0); LYMPH # 3.6 (1.2-3.4); LYMPH % 29.9 % (20.0-51.0); MEAN CELL VOLUME 77 fl (80.0-100.0); MEAN CORPUSCULAR HEMOGLOBIN 24 pg (27.0-31.0); MEAN CORPUSCULAR HGB CONC 32 g/dl (33.0-37.0); MEAN PLATELET VOLUME 10.7 fl (7.4-10.4); MONO # 0.8 (0.1-0.6); MONO % 6.7 % (1.7-9.3); PLATELET COUNT 309 K/mm3 (130-400); RED BLOOD COUNT 5.57 M/mm3 (4.10-5.30); REDCELL DISTRIBUTION WIDTH-CV 15.9 % (11.5-14.5)
[2021-01-13 20:46] LABS: CALCIUM 9.7 mg/dL (8.4-10.2); CREATININE, serum 1.04 (0.52-1.25); POTASSIUM 4.4 mmol/L (3.4-5.0)
[2021-01-13 23:45] VITALS: BP 124/73; PULSE 95; TEMP 98.2
[2021-02-24] MEDS ORDERED: PREDNISONE 5MG5 MG PO (19:48)
[2021-02-25] MEDS ORDERED: OMNICEF 300MG300 MG PO (14:56)
== END 2021-01-13 23:45 | disposition home or self-care (01) ==
LOC: COL.ER 19:54
PROVIDERS: Emergency Medicine
DX: G43.909 Migraine, unspecified, not intractable, without status migrainosus (principal); R68.84 Jaw pain; Z79.899 Other long term (current) drug therapy
CPT/HCPCS: J1630; J1953; J3360; J7030

== ENCOUNTER → 2021-01-28 | Emergency (ER) | payer MEDICAID ==
[~2021-01-28] MED LIST changes: +KEPPRA 500MG500 MG PO; +MELATONIN5 M1 SL; +PEN-VEE K500 MG PO; +PERCOCET 325 MG1 TA2 PO; +PRISTIQ 50 MG T50 MG PO
== END ==
LOC: COL.ER 14:07
DX: R69 Illness, unspecified (principal)

== ENCOUNTER 2021-02-01 16:43 | Emergency (ER) | payer MEDICAID ==
[~2021-02-01] VITALS: Ht 154.9 cm; Wt 117.7 kg
[~2021-02-01 16:43] MED LIST changes: -KEPPRA 500MG500 MG PO; -MELATONIN5 M1 SL; -PEN-VEE K500 MG PO; -PERCOCET 325 MG1 TA2 PO; -PRISTIQ 50 MG T50 MG PO
[2021-02-01 16:48] VITALS: TEMP 98.7
[2021-02-01] MEDS ORDERED: MELATONIN5 M1 SL (16:55)
[2021-02-01] MEDS ORDERED: KEPPRA 500MG500 MG PO (16:55)
[2021-02-01] MEDS ORDERED: PRISTIQ 50 MG T50 MG PO (16:56)
[2021-02-01 17:44] LABS: BASO # 0.1 (0.0-0.2); BASO % 0.5 % (0.0-2.0); EOS # 0.7 (0.0-0.7); EOS % 5.1 % (0-4.0); GRAN # 8.7 (1.4-6.5); GRAN % 65.2 % (42.2-75.2); HEMATOCRIT 45.3 % (37.0-47.0); HEMOGLOBIN 14.2 g/dl (12.5-16.0); LYMPH # 2.9 (1.2-3.4); LYMPH % 21.6 % (20.0-51.0); MEAN CELL VOLUME 77 fl (80.0-100.0); MEAN CORPUSCULAR HEMOGLOBIN 24 pg (27.0-31.0); MEAN CORPUSCULAR HGB CONC 31 g/dl (33.0-37.0); MEAN PLATELET VOLUME 11.7 fl (7.4-10.4); MONO % 7.2 % (1.7-9.3); PLATELET COUNT 361 K/mm3 (130-400); RED BLOOD COUNT 5.92 M/mm3 (4.10-5.30); REDCELL DISTRIBUTION WIDTH-CV 16.3 % (11.5-14.5)
[2021-02-01 17:55] LABS: ALANINE AMINOTRANSFERASE 24 U/L (4-34); ALBUMIN 4.7 gm/dL (3.5-5.0); ALKALINE PHOSPHATASE 81 U/L (50-136); ANION GAP 11 mmol/L (7-16); AST,SGOT 33 U/L (15-37); BILIRUBIN,TOTAL 0.5 mg/dL (0.0-1.0); BLOOD UREA NITROGEN 14 mg/dL (7-17); CALCIUM 9.6 mg/dL (8.4-10.2); CARBON DIOXIDE 22 mmol/L (22-30); CHLORIDE 106 mmol/L (98-107); CREATININE, serum 1.04 (0.52-1.25); GLUCOSE 202 mg/dL (74-106); POTASSIUM 4.5 mmol/L (3.4-5.0); SODIUM 139 mmol/L (137-145); TOTAL PROTEIN 8.3 gm/dL (6.4-8.2)
[2021-02-01 17:58] LABS: ACETAMINOPHEN < 10 ug/mL (10-30); ALCOHOL(ethanol),MEDICAL < 10 mg/dL; SALICYLATE < 1.0 mg/dL
[2021-02-01 18:39] LABS: COLLECTION METHOD CLEAN CATCH
[2021-02-01 18:48] LABS: MUCOUS Present /lpf; PH 5 (5-8); URINE APPEARANCE Hazy; URINE BACTERIA Rare /hpf; URINE BILIRUBIN Negative (NEGATIVE); URINE BLOOD Negative (NEGATIVE); URINE COLOR Amber; URINE GLUCOSE Negative (NEGATIVE); URINE KETONE Trace (NEGATIVE); URINE LEUKOCYTE ESTERASE 1+ (NEGATIVE); URINE NITRATE Negative (NEGATIVE); URINE PROTEIN(semi-quant) 2+ (NEGATIVE); URINE RBC 0-2 /hpf; URINE UROBILINOGEN Negative (NEGATIVE)
[2021-02-01 19:03] LABS: TRICYCLIC ANTIDEPRESS URINE POSITIVE
[2021-02-01 20:45] VITALS: BP 105/40; PULSE 80
[2021-02-24] MEDS ORDERED: PREDNISONE 5MG5 MG PO (19:48)
[2021-02-25] MEDS ORDERED: OMNICEF 300MG300 MG PO (14:56)
== END 2021-02-01 20:55 | disposition home or self-care (01) ==
LOC: COL.ER 16:43
PROVIDERS: Family Medicine
DX: T42.8X1A Poisoning by antiparkinsonism drugs and other central muscle-tone depressants, accidental (unintentional), initial encounter (principal); F31.9 Bipolar disorder, unspecified; Z79.899 Other long term (current) drug therapy

== ENCOUNTER 2021-02-05 17:18 | Emergency (ER) | payer MEDICAID ==
[~2021-02-05] VITALS: Ht 154.9 cm; Wt 112.7 kg
[~2021-02-05 17:18] MED LIST changes: +KEPPRA 500MG500 MG PO; +MELATONIN5 M1 SL; +PRISTIQ 50 MG T50 MG PO
[2021-02-05 17:57] VITALS: TEMP 99
[2021-02-05] MEDS ORDERED: PEN-VEE K500 MG PO (18:32)
[2021-02-05] MEDS ORDERED: NORCO 325 MG-51 TAB PO (18:32)
[2021-02-05 18:48] VITALS: BP 124/76; PULSE 103
[2021-02-24] MEDS ORDERED: PREDNISONE 5MG5 MG PO (19:48)
[2021-02-25] MEDS ORDERED: OMNICEF 300MG300 MG PO (14:56)
== END 2021-02-05 18:48 | disposition home or self-care (01) ==
LOC: COL.ER 17:18
DX: K08.89 Other specified disorders of teeth and supporting structures (principal); Z86.69 Personal history of other diseases of the nervous system and sense organs; Z79.899 Other long term (current) drug therapy

== ENCOUNTER 2021-02-08 19:34 | Emergency (ER) | payer MEDICAID ==
[~2021-02-08] VITALS: Ht 154.9 cm; Wt 112.7 kg
[~2021-02-08 19:34] MED LIST changes: +PEN-VEE K500 MG PO
[2021-02-08] MEDS ORDERED: CLEOCIN HCL300 MG PO (21:14)
[2021-02-08] MEDS ORDERED: PERCOCET 325 MG1 TA2 PO (21:14)
[2021-02-08 21:16] VITALS: BP 110/64; PULSE 88; TEMP 98.7
[2021-02-24] MEDS ORDERED: PREDNISONE 5MG5 MG PO (19:48)
[2021-02-25] MEDS ORDERED: OMNICEF 300MG300 MG PO (14:56)
== END 2021-02-08 21:23 | disposition home or self-care (01) ==
LOC: COL.ER 19:34
DX: K08.89 Other specified disorders of teeth and supporting structures (principal); F31.9 Bipolar disorder, unspecified; G40.909 Epilepsy, unspecified, not intractable, without status epilepticus; Z88.6 Allergy status to analgesic agent; Z79.899 Other long term (current) drug therapy
CPT/HCPCS: J1630

== ENCOUNTER 2021-02-14 10:56 | Day surgery (SDC) | payer MEDICAID ==
[~2021-02-14] VITALS: Ht 154.9 cm; Wt 112.0 kg
[~2021-02-14 10:56] MED LIST changes: +PERCOCET 325 MG1 TA2 PO
[2021-02-14 11:35] VITALS: BP 134/86; PULSE 95; TEMP 97.6
[2021-02-14 13:50] VITALS: BP 114/42; PULSE 97; TEMP 97.8
--- NOTE | 2021-02-14 13:57 | NUR ---
The patient finished with her procedure at 1350 and used the bathroom and arrived back to her room at 1357 and vital signs were started. The patient is dressed and agreed to try some sprite and chocolate pudding at this time. The patient's friend, Michelle, was brought back to be at her bedside. Will continue to monitor the patient.
[2021-02-14 14:05] VITALS: BP 98/61; PULSE 86
--- NOTE | 2021-02-14 14:05 | NUR ---
She appears to be tolerating the food and drink well. Vital signs appear stable. Will continue to monitor the patient.
[2021-02-14 14:20] VITALS: BP 108/62; PULSE 94
--- NOTE | 2021-02-14 14:20 | NUR ---
Dr. Perez is talking with the patient and her friend, Michelle, regarding the findings of the procedure.
--- NOTE | 2021-02-14 14:35 | NUR ---
Discharge instructions were reviewed with the patient and her friend at this time. They both verbalized understanding and have no questions for the nurse at this time. The patient's IV to her right hand was removed and a pressure dressing was applied to the site. The patient is dressed and ready to be escorted out.
--- NOTE | 2021-02-14 14:45 | NUR ---
The patient was escorted out via wheelchair to a private vehicle by ABRAHAM Cote. The patient's belongings and discharge paperwork were sent with her. The patient's friend, Michelle,is present to drive her home.
[2021-02-24] MEDS ORDERED: PREDNISONE 5MG5 MG PO (19:48)
[2021-02-25] MEDS ORDERED: OMNICEF 300MG300 MG PO (14:56)
== END 2021-02-14 14:45 | disposition home or self-care (01) ==
LOC: SDCO 10:56
DX: K21.00 Gastro-esophageal reflux disease with esophagitis, without bleeding (principal); T54.3X1A Toxic effect of corrosive alkalis and alkali-like substances, accidental (unintentional), initial encounter; K44.9 Diaphragmatic hernia without obstruction or gangrene; K29.70 Gastritis, unspecified, without bleeding; K64.0 First degree hemorrhoids; K64.4 Residual hemorrhoidal skin tags; K62.89 Other specified diseases of anus and rectum; K92.1 Melena; Z79.899 Other long term (current) drug therapy; F32.9 Major depressive disorder, single episode, unspecified; I10 Essential (primary) hypertension; D50.9 Iron deficiency anemia, unspecified; Z87.440 Personal history of urinary (tract) infections; F41.9 Anxiety disorder, unspecified; J45.909 Unspecified asthma, uncomplicated; G40.909 Epilepsy, unspecified, not intractable, without status epilepticus; G47.33 Obstructive sleep apnea (adult) (pediatric); E66.01 Morbid (severe) obesity due to excess calories
CPT/HCPCS: J2704

== ENCOUNTER 2021-03-22 12:55 | Emergency (ER) | payer MEDICAID ==
[~2021-03-22] VITALS: Ht 152.4 cm; Wt 112.0 kg
[2021-03-22 14:50] LABS: BASO # 0.1 (0.0-0.2); BASO % 0.4 % (0.0-2.0); EOS # 0.5 (0.0-0.7); EOS % 3.6 % (0-4.0); GRAN # 8.9 (1.4-6.5); GRAN % 69.2 % (42.2-75.2); HEMATOCRIT 44.1 % (37.0-47.0); HEMOGLOBIN 13.6 g/dl (12.5-16.0); LYMPH # 2.7 (1.2-3.4); LYMPH % 21.2 % (20.0-51.0); MEAN CELL VOLUME 77 fl (80.0-100.0); MEAN CORPUSCULAR HEMOGLOBIN 24 pg (27.0-31.0); MEAN CORPUSCULAR HGB CONC 31 g/dl (33.0-37.0); MEAN PLATELET VOLUME 9.8 fl (7.4-10.4); MONO # 0.7 (0.1-0.6); MONO % 5.2 % (1.7-9.3); PLATELET COUNT 335 K/mm3 (130-400); RED BLOOD COUNT 5.74 M/mm3 (4.10-5.30); REDCELL DISTRIBUTION WIDTH-CV 16.7 % (11.5-14.5)
[2021-03-22 15:14] LABS: ALANINE AMINOTRANSFERASE 26 U/L (0-55); ALBUMIN 3.9 gm/dL (3.5-5.0); ALKALINE PHOSPHATASE 81 U/L (0-750); ANION GAP 11 mmol/L; AST,SGOT 16 U/L (5-34); BILIRUBIN,TOTAL 0.2 mg/dL (0.2-1.2); BLOOD UREA NITROGEN 8 mg/dL (7-19); CALCIUM 9.9 mg/dL (8.4-10.2); CARBON DIOXIDE 22 mEq/L (22-29); CHLORIDE 110 mmol/L (98-107); CREATININE, serum 1.12 mg/dL (0.57-1.11); GLUCOSE 88 mg/dL (70-99); POTASSIUM 4.3 mmol/L (3.5-4.5); SODIUM 143 mmol/L (136-145); TOTAL PROTEIN 7.3 gm/dL (6.2-8.1)
[2021-03-22 15:22] LABS: TROPONIN-I < 0.010 ng/mL (0.00-0.033)
[2021-03-22 15:49] VITALS: BP 124/100; PULSE 78; TEMP 98.4
== END 2021-03-22 15:56 | disposition home or self-care (01) ==
LOC: COL.ER 12:55
PROVIDERS: Nurse Practitioner Primary Care
DX: R07.89 Other chest pain (principal); F41.9 Anxiety disorder, unspecified; Z88.6 Allergy status to analgesic agent; Z79.899 Other long term (current) drug therapy
CPT/HCPCS: J1885

== ENCOUNTER 2021-03-25 06:46 | Emergency (ER) | payer MEDICAID ==
[~2021-03-25] VITALS: Ht 152.4 cm; Wt 109.5 kg
[2021-03-25 07:07] VITALS: TEMP 98
[2021-03-25 09:20] VITALS: BP 129/92; PULSE 88
== END 2021-03-25 09:20 | disposition home or self-care (01) ==
LOC: COL.ER 06:46
DX: S09.90XA Unspecified injury of head, initial encounter (principal); S13.4XXA Sprain of ligaments of cervical spine, initial encounter; M54.50 Low back pain, unspecified; F17.210 Nicotine dependence, cigarettes, uncomplicated; W10.9XXA Fall (on) (from) unspecified stairs and steps, initial encounter
CPT/HCPCS: J1885

== ENCOUNTER 2021-04-04 17:38 | Emergency (ER) | payer MEDICAID ==
[~2021-04-04] VITALS: Ht 152.4 cm; Wt 154.5 kg
[2021-04-04 17:55] VITALS: BP 139/91; PULSE 117; TEMP 98.3
== END 2021-04-04 19:40 | disposition left against medical advice (07) ==
LOC: COL.ER 17:38
DX: M54.2 Cervicalgia (principal); W10.8XXA Fall (on) (from) other stairs and steps, initial encounter

== ENCOUNTER 2021-04-26 16:42 | Emergency (ER) | payer MEDICAID ==
[~2021-04-26] VITALS: Ht 152.4 cm; Wt 108.2 kg
[2021-04-26 16:49] VITALS: TEMP 98
[2021-04-26 17:44] LABS: COLLECTION METHOD CLEAN CATCH
[2021-04-26 17:49] LABS: BASO # 0.1 K/mm3 (0.0-0.2); BASO % 0.4 % (0.0-2.0); EOS # 0.5 K/mm3 (0.0-0.7); EOS % 3.1 % (0-4.0); GRAN # 12.7 K/mm3 (1.4-6.5); GRAN % 75.9 % (42.2-75.2); HEMATOCRIT 41.6 % (37.0-47.0); LYMPH # 2.7 K/mm3 (1.2-3.4); LYMPH % 15.9 % (20.0-51.0); MEAN CELL VOLUME 76 fl (80.0-100.0); MEAN CORPUSCULAR HEMOGLOBIN 24 pg (27.0-31.0); MEAN CORPUSCULAR HGB CONC 31 g/dl (33.0-37.0); MEAN PLATELET VOLUME 10.5 fl (7.4-10.4); MONO # 0.7 K/mm3 (0.1-0.6); MONO % 4.3 % (1.7-9.3); PLATELET COUNT 341 K/mm3 (130-400); RED BLOOD COUNT 5.48 M/mm3 (4.10-5.30); REDCELL DISTRIBUTION WIDTH-CV 17.6 % (11.5-14.5)
[2021-04-26 18:02] LABS: MUCOUS Present /lpf; PH 7 (5-8); URINE APPEARANCE Hazy; URINE BACTERIA Rare /hpf; URINE BILIRUBIN Negative (NEGATIVE); URINE BLOOD Negative (NEGATIVE); URINE COLOR Yellow; URINE GLUCOSE Negative (NEGATIVE); URINE KETONE Negative (NEGATIVE); URINE LEUKOCYTE ESTERASE Trace (NEGATIVE); URINE NITRATE Negative (NEGATIVE); URINE PROTEIN(semi-quant) 2+ (NEGATIVE); URINE RBC 0-2 /hpf
[2021-04-26 18:07] LABS: ALBUMIN 3.8 gm/dL (3.5-5.0); BILIRUBIN,TOTAL 0.3 mg/dL (0.2-1.2); CALCIUM 9.8 mg/dL (8.4-10.2); CREATININE, serum 1.21 mg/dL (0.57-1.11); POTASSIUM 4.2 mmol/L (3.5-4.5); TOTAL PROTEIN 6.7 gm/dL (6.2-8.1)
[2021-04-26 18:45] LABS: STREP SCREEN NEGATIVE
[2021-04-26 20:13] VITALS: BP 150/92; PULSE 102
== END 2021-04-26 20:13 | disposition home or self-care (01) ==
LOC: COL.ER 16:42
PROVIDERS: Personal Emergency Response Attendant
DX: E86.0 Dehydration (principal); R42 Dizziness and giddiness; D72.829 Elevated white blood cell count, unspecified; R53.81 Other malaise; E27.40 Unspecified adrenocortical insufficiency; F17.200 Nicotine dependence, unspecified, uncomplicated; Z79.52 Long term (current) use of systemic steroids
CPT/HCPCS: J0696; J1720; J7030

== ENCOUNTER 2021-05-03 11:50 | Emergency (ER) | payer MEDICAID ==
[~2021-05-03] VITALS: Ht 152.4 cm; Wt 109.1 kg
[2021-05-03 11:59] VITALS: BP 120/99; PULSE 120; TEMP 97.8
== END 2021-05-03 14:30 | disposition left against medical advice (07) ==
LOC: COL.ER 11:50
DX: H53.9 Unspecified visual disturbance (principal)

== ENCOUNTER 2021-07-06 09:05 | Day surgery (SDC) | payer MEDICAID ==
[~2021-07-06] VITALS: Ht 154.9 cm; Wt 105.0 kg
[2021-07-06 10:02] VITALS: BP 136/84; PULSE 96; TEMP 98.3
[2021-07-06 11:05] VITALS: BP 130/89; PULSE 091; TEMP 98
--- NOTE | 2021-07-06 11:05 | NUR ---
PT TO [facility] 3 VIA CART FROM ENDO ROOM, WALKED TO CHAIR, IN ROOM, CALL LIGHT IN REACH, TAKES SNACK, HAS OCCASIONAL COUGH. NO OTHER C/O
[2021-07-06 11:20] VITALS: BP 127/51; PULSE 89
--- NOTE | 2021-07-06 11:30 | NUR ---
DR SOW VISIT WITH PT AND , THEN REVIEWED DISCHARGE INST. ON PROCEDURE, MODERATE SEDATION AND REFLUX DISEASE WITH VERBAL UNDERSTANDING. IV D'CD INTACT. PT UP AND DRESSED AND DISCHARGED AT 1200 VIA W/C TO CAR WITH AND RIDE
[2021-07-06 11:35] VITALS: BP 128/81; PULSE 85
== END 2021-07-06 12:00 | disposition home or self-care (01) ==
LOC: SDCO 09:05
DX: K21.00 Gastro-esophageal reflux disease with esophagitis, without bleeding (principal); K44.9 Diaphragmatic hernia without obstruction or gangrene; I10 Essential (primary) hypertension; D50.9 Iron deficiency anemia, unspecified; N39.0 Urinary tract infection, site not specified; Q63.1 Lobulated, fused and horseshoe kidney; G47.33 Obstructive sleep apnea (adult) (pediatric); E78.5 Hyperlipidemia, unspecified; E66.01 Morbid (severe) obesity due to excess calories; K52.9 Noninfective gastroenteritis and colitis, unspecified; F41.9 Anxiety disorder, unspecified; F17.210 Nicotine dependence, cigarettes, uncomplicated; F43.10 Post-traumatic stress disorder, unspecified; F31.9 Bipolar disorder, unspecified; Z98.84 Bariatric surgery status; Z99.89 Dependence on other enabling machines and devices; Z79.899 Other long term (current) drug therapy; Z79.891 Long term (current) use of opiate analgesic; Z90.89 Acquired absence of other organs; Z83.3 Family history of diabetes mellitus; Z80.6 Family history of leukemia
CPT/HCPCS: J2704

== ENCOUNTER 2021-07-28 18:50 | Emergency (ER) | payer MEDICAID ==
[~2021-07-28] VITALS: Ht 154.9 cm; Wt 100.0 kg
[2021-07-28] MEDS ORDERED: ROXICODONE 55 MG/TAB PO (19:19)
[2021-07-28] MEDS ORDERED: PEN-VEE K500 MG PO (19:19)
[2021-07-28 19:30] VITALS: BP 157/91; PULSE 103; TEMP 98.6
== END 2021-07-28 19:30 | disposition home or self-care (01) ==
LOC: COL.ER 18:50
DX: K08.89 Other specified disorders of teeth and supporting structures (principal); Z98.818 Other dental procedure status; Z88.1 Allergy status to other antibiotic agents; Z88.2 Allergy status to sulfonamides

== ENCOUNTER 2021-10-22 22:55 | Emergency (ER) | payer MEDICAID ==
[~2021-10-22] VITALS: Ht 154.9 cm; Wt 136.4 kg
[~2021-10-22 22:55] MED LIST changes: +ROXICODONE 55 MG/TAB PO
[2021-10-22 23:35] VITALS: BP 141/102; PULSE 96; TEMP 98.5
[2021-10-23 01:59] LABS: BASO # 0.1 K/mm3 (0.0-0.2); BASO % 0.5 % (0.0-2.0); EOS # 0.5 K/mm3 (0.0-0.7); EOS % 3.4 % (0.0-4.0); GRAN # 9.1 K/mm3 (1.4-6.5); GRAN % 64.5 % (42.2-75.2); HEMATOCRIT 45.1 % (37.0-47.0); HEMOGLOBIN 14.2 g/dl (12.5-16.0); LYMPH # 3.5 K/mm3 (1.2-3.4); MEAN CELL VOLUME 77 fl (80.0-100.0); MEAN CORPUSCULAR HEMOGLOBIN 24 pg (27-31); MEAN CORPUSCULAR HGB CONC 32 g/dl (33.0-37.0); MEAN PLATELET VOLUME 10.4 fl (7.4-10.4); MONO # 0.9 K/mm3 (0.1-0.6); MONO % 6.2 % (1.7-9.3); PLATELET COUNT 378 K/mm3 (130-400); RED BLOOD COUNT 5.89 M/mm3 (4.10-5.30); REDCELL DISTRIBUTION WIDTH-CV 17.6 % (11.5-14.5)
[2021-10-23 02:04] LABS: ALBUMIN 4.2 gm/dL (3.5-5.0); BILIRUBIN,TOTAL 0.2 mg/dL (0.2-1.2); C-REACTIVE PROTEIN 2.72 mg/dL (0.00-0.50); CALCIUM 9.9 mg/dL (8.4-10.2); CREATININE, serum 1.09 mg/dL (0.57-1.11); POTASSIUM 4.4 mmol/L (3.5-4.5); TOTAL PROTEIN 8.1 gm/dL (6.2-8.1)
[2021-10-23 02:31] LABS: COLLECTION METHOD CLEAN CATCH
[2021-10-23 02:32] LABS: MUCOUS Present (NOT PRESENT); PH 6 (5-8); URINE APPEARANCE Clear (CLEAR/HAZY); URINE BACTERIA Rare /hpf (NONE SEEN); URINE BILIRUBIN Negative (NEGATIVE); URINE BLOOD 3+ (NEGATIVE); URINE COLOR Yellow (YELLOW); URINE GLUCOSE Negative (NEGATIVE); URINE KETONE Negative (NEGATIVE); URINE LEUKOCYTE ESTERASE Negative (NEGATIVE); URINE NITRATE Negative (NEGATIVE); URINE PROTEIN(semi-quant) 1+ (NEGATIVE); URINE UROBILINOGEN Negative (NEGATIVE)
== END 2021-10-23 03:00 | disposition left against medical advice (07) ==
LOC: COL.ER 22:55
PROVIDERS: Emergency Medicine; Nurse Practitioner
DX: R10.31 Right lower quadrant pain (principal); R11.2 Nausea with vomiting, unspecified; R19.7 Diarrhea, unspecified; R51.9 Headache, unspecified; F17.200 Nicotine dependence, unspecified, uncomplicated; Z32.02 Encounter for pregnancy test, result negative
CPT/HCPCS: J1630; J2060; J2405; J7030

== ENCOUNTER 2022-01-07 22:12 | Emergency (ER) | payer MEDICAID ==
[~2022-01-07] VITALS: Ht 154.9 cm; Wt 96.8 kg
[2022-01-07 22:35] VITALS: TEMP 98.9
[2022-01-07 23:49] LABS: BASO # 0.1 K/mm3 (0.0-0.2); BASO % 0.3 % (0.0-2.0); EOS # 0.5 K/mm3 (0.0-0.7); EOS % 3.1 % (0.0-4.0); GRAN # 12.8 K/mm3 (1.4-6.5); GRAN % 72.8 % (42.2-75.2); HEMOGLOBIN 13.2 g/dl (12.5-16.0); LYMPH % 17.3 % (20.0-51.0); MEAN CELL VOLUME 76 fl (80.0-100.0); MEAN CORPUSCULAR HEMOGLOBIN 24 pg (27-31); MEAN CORPUSCULAR HGB CONC 32 g/dl (33.0-37.0); MEAN PLATELET VOLUME 9.8 fl (7.4-10.4); MONO # 1.1 K/mm3 (0.1-0.6); MONO % 6.2 % (1.7-9.3); PLATELET COUNT 288 K/mm3 (130-400); REDCELL DISTRIBUTION WIDTH-CV 16.2 % (11.5-14.5)
[2022-01-08 00:06] LABS: ALANINE AMINOTRANSFERASE 15 U/L (0-55); ALBUMIN 3.6 gm/dL (3.5-5.0); ALKALINE PHOSPHATASE 89 U/L (40-150); ANION GAP 11 mmol/L (7-16); AST,SGOT 10 U/L (5-34); BILIRUBIN,TOTAL 0.1 mg/dL (0.2-1.2); BLOOD UREA NITROGEN 11 mg/dL (7-19); CALCIUM 9.2 mg/dL (8.4-10.2); CARBON DIOXIDE 22 mmol/L (22-29); CHLORIDE 108 mmol/L (98-107); CREATININE, serum 1.12 mg/dL (0.57-1.11); GLUCOSE 109 mg/dL (70-99); POTASSIUM 3.8 mmol/L (3.5-4.5); SODIUM 141 mmol/L (136-145); TOTAL PROTEIN 6.9 gm/dL (6.2-8.1)
[2022-01-08 00:13] LABS: TROPONIN-I < 0.010 ng/mL (0.00-0.033)
[2022-01-08 00:32] VITALS: BP 133/112; PULSE 97
== END 2022-01-08 00:32 | disposition home or self-care (01) ==
LOC: COL.ER 22:12
PROVIDERS: Nurse Practitioner
DX: R07.2 Precordial pain (principal); D72.829 Elevated white blood cell count, unspecified; Z88.1 Allergy status to other antibiotic agents; Z88.6 Allergy status to analgesic agent

== ENCOUNTER 2022-01-11 21:50 | Emergency (ER) | payer MEDICAID ==
[~2022-01-11] VITALS: Ht 154.9 cm; Wt 96.8 kg
[2022-01-11 21:53] VITALS: BP 151/93; PULSE 121; TEMP 98.7
[2022-01-11] MEDS ORDERED: FLEXERIL 1010 MG/TAB PO (23:01)
== END 2022-01-11 23:24 | disposition home or self-care (01) ==
LOC: COL.ER 21:50
DX: K02.9 Dental caries, unspecified (principal); K03.81 Cracked tooth; M62.838 Other muscle spasm
CPT/HCPCS: J1885; J2360

== ENCOUNTER 2022-02-24 16:41 | Emergency (ER) | payer MEDICAID ==
[~2022-02-24] VITALS: Ht 154.9 cm; Wt 99.5 kg
[2022-02-24 17:13] VITALS: TEMP 97.4
[2022-02-24 19:35] VITALS: BP 141/93; PULSE 88
== END 2022-02-24 19:35 | disposition home or self-care (01) ==
LOC: COL.ER 16:41
DX: S63.501A Unspecified sprain of right wrist, initial encounter (principal); S80.01XA Contusion of right knee, initial encounter; S09.90XA Unspecified injury of head, initial encounter; F17.290 Nicotine dependence, other tobacco product, uncomplicated; W10.9XXA Fall (on) (from) unspecified stairs and steps, initial encounter; Y93.01 Activity, walking, marching and hiking

== ENCOUNTER 2022-03-03 02:06 | Emergency (ER) | payer MEDICAID ==
[~2022-03-03] VITALS: Ht 154.9 cm; Wt 99.5 kg
[2022-03-03 02:14] VITALS: TEMP 97.8
[2022-03-03 03:08] VITALS: BP 152/88; PULSE 96
== END 2022-03-03 03:08 | disposition home or self-care (01) ==
LOC: COL.ER 02:06
DX: S91.312A Laceration without foreign body, left foot, initial encounter (principal); F17.200 Nicotine dependence, unspecified, uncomplicated; Z23 Encounter for immunization; X58.XXXA Exposure to other specified factors, initial encounter; Y92.59 Other trade areas as the place of occurrence of the external cause; Y93.01 Activity, walking, marching and hiking

== ENCOUNTER 2022-03-12 14:55 | Emergency (ER) | payer MEDICAID ==
[~2022-03-12] VITALS: Ht 154.9 cm; Wt 99.5 kg
[2022-03-12 15:13] VITALS: TEMP 98.6
[2022-03-12 17:10] LABS: COLLECTION METHOD CLEAN CATCH
[2022-03-12 17:14] LABS: URINE APPEARANCE Clear (CLEAR/HAZY); URINE COLOR Yellow (YELLOW)
[2022-03-12 17:17] LABS: PH 5.5 (5.0-8.5); URINE BLOOD Negative (NEGATIVE); URINE GLUCOSE Negative (NEGATIVE); URINE KETONE TRACE (NEGATIVE); URINE NITRATE Negative (NEGATIVE); URINE PROTEIN(semi-quant) 2+ (NEGATIVE); URINE UROBILINOGEN 0.2 E.U/dL (0.2-1.0)
[2022-03-12 17:22] LABS: MUCOUS Present (NOT PRESENT); URINE BACTERIA None Seen /hpf (NONE SEEN); URINE RBC 0-2 /hpf (0-2)
[2022-03-12 19:15] VITALS: BP 130/88; PULSE 92
== END 2022-03-12 19:15 | disposition home or self-care (01) ==
LOC: COL.ER 14:55
PROVIDERS: Family Medicine
DX: O26.891 Other specified pregnancy related conditions, first trimester (principal); O99.331 Smoking (tobacco) complicating pregnancy, first trimester; R11.0 Nausea; E66.9 Obesity, unspecified; F17.290 Nicotine dependence, other tobacco product, uncomplicated; Z3A.00 Weeks of gestation of pregnancy not specified
CPT/HCPCS: J2765; J7030

== ENCOUNTER → 2022-03-16 | Outpatient (CLI) | payer MEDICAID | LOC: COL.LAB 15:51 | DX: Z01.89 Encounter for other specified special examinations (principal) ==